=== PATIENT | female | born 1990 | race Two or more races ===

== ENCOUNTER 2023-10-10 19:50 | Inpatient (IN) ==
[2023-10-10] MEDS: SODIUM CHLORIDE 0.9% 1,000 ML IV ONE ×2 (22:01→22:56)
[2023-10-10] MEDS: levoFLOXacin/D5W 750 MG/150 ML BAG IV STA (22:01)
[2023-10-10 22:19] LABS: Basophils # (auto) 0.02 K/uL (0.00-0.20); Basophils % (auto) 0.3 %; Eosinophils # (auto) 0.08 K/uL (0.00-0.50); Eosinophils % (auto) 1.1 %; Hemoglobin 12.4 g/dl (12.0-16.0); Immature Granulocytes # (auto) 0.02 K/uL (0.01-0.20); Immature Granulocytes % (auto) 0.3 %; Lymphocytes # (auto) 0.58 K/uL (1.20-3.40); Lymphocytes % (auto) 7.8 %; Mean Corpuscular Hemoglobin 28.3 pg (25.0-34.0); Mean Corpuscular Hgb Conc 33.5 g/dL (32.0-36.0); Mean Corpuscular Volume 84.5 fL (80.0-100.0); Mean Platelet Volume 10.7 fL (9.4-12.4); Monocytes # (auto) 1.07 K/uL (0.11-0.59); Monocytes % (auto) 14.4 %; Neutrophils # (auto) 5.66 K/uL (1.40-6.50); Neutrophils % (auto) 76.1 %; Platelet Count 199 K/uL (130-400); RDW Coefficient of Variation 12.4 % (11.5-14.5); RDW Standard Deviation 37.8 fL (36.4-46.3); Red Blood Count 4.38 M/uL (4.20-5.40); White Blood Count 7.43 K/ul (4.8-10.8)
[2023-10-10 22:20] LABS: Pregnancy Test, Serum Negative (Negative)
[2023-10-10 22:24] LABS: Albumin Level 4.4 gm/dl (3.4-5.0); Bilirubin,Total 0.3 mg/dl (0.2-1.0); Calcium 9.6 mg/dl (8.6-10.3); Potassium 3.7 mmol/L (3.5-5.1)
[2023-10-10 22:30] LABS: Albumin Globulin Ratio 1.2 (0.9-2); BUN Creatinine Ratio 22.6 (10-20); Creatinine Clr Calc Pharmacy 96.9 ml/min; Est GFR (African American) 138.3 ml/min; Est GFR (Non-African American) 119.3 ml/min; Globulin 3.8 gm/dl (2.5-4.0); Total Protein 8.2 gm/dl (6.0-8.3)
[2023-10-10] MEDS: OPTIRAY 320 500ml IV ONE (23:25)
--- NOTE | 2023-10-11 01:07 | CT Scan Report ---
Exam(s): CT ABDOMEN + PELVIS With Contrast IV Amt: 85 cc opti 320 EXAM: CT Abdomen and Pelvis With Intravenous Contrast CLINICAL HISTORY: Reason for exam: ? pyleo/abscess. TECHNIQUE: Axial computed tomography images of the abdomen and pelvis with intravenous contrast. CTDI is . mGy and DLP is mGy-cm. Automated exposure control was utilized for the study. A dose lowering technique was utilized adhering to the principles of ALARA. CONTRAST: Patient received 85 cc opti 320 of IV contrast COMPARISON: No relevant prior studies available. FINDINGS: Lung bases: Unremarkable. No mass. No consolidation. ABDOMEN: Liver: Unremarkable. No mass. Gallbladder and bile ducts: Unremarkable. No calcified stones. No ductal dilation. Pancreas: Unremarkable. No mass. No ductal dilation. Spleen: Unremarkable. No splenomegaly. Adrenals: Unremarkable. No mass. Kidneys and ureters: Unremarkable. No solid mass. No hydronephrosis. Stomach and bowel: Unremarkable. No obstruction. No mucosal thickening. PELVIS: Appendix: No findings to suggest acute appendicitis. Bladder: Unremarkable. No mass. Reproductive: abnormal enhancement with fullness of the cervix. Right ovary demonstrates a 1.1 x 1.3 cm rim-enhancing collection likely representing an involuting follicle. ABDOMEN and PELVIS: Intraperitoneal space: Unremarkable. No free air. No significant fluid collection. Bones/joints: No acute fracture. No dislocation. Soft tissues: Unremarkable. Vasculature: Unremarkable. No abdominal aortic aneurysm. Lymph nodes: Unremarkable. No enlarged lymph nodes. IMPRESSION: Findings suggestive of cervicitis. Electronically signed by: Abhi Jensen MD 10/11/23 01:06 AM
--- NOTE | 2023-10-11 01:39 | Emergency Department Note ---
History of Present Illness General Chief complaint: Fever Stated complaint: FEVER, DOC REF History of Present Illness Maximum Pain Intensity: 7 This 33-year-old female presents the ER for fever, chills, urinary symptoms and back pain she was seen the other day and started on Keflex for UTI. Patient states her symptoms of gotten much worse. Pharmacy had called and she has ESBL in her urine is recommended Levaquin for treatment. Patient states she is healthy with no active medical problems. Home Medications Medication Instructions Recorded Confirmed Type cephalexin 500 mg capsule 500 mg PO TID 7 days #21 caps 10/08/23 10/11/23 Rx Allergies Allergy/AdvReac Type Severity Reaction Status Date / Time No Known Allergies Allergy Unverified 10/11/23 01:45 Past Med/Surg History Medical History No significant medical problems Social History Smoking Status: Never smoker Preferred Language: Estonian Feels Safe at Home: Yes Review of Systems A total of 10 systems reviewed and were otherwise negative Physical Exam Vital Signs Vital Signs - 24 hr 10/10/23 20:30 10/10/23 22:29 10/10/23 23:02 Temperature 37.1 C Temperature Source Temporal Artery Scan Pulse Rate 104 H 112 H Pulse Rate [Apical] 79 Pulse Rhythm [Apical] Regular Pulse Strength [Apical] Normal Respiratory Rate 18 20 Respiratory Effort / Characteristics Non-Labored Respiratory Depth Normal Normal Respiratory Pattern Regular Blood Pressure 119/70 Blood Pressure [Left Arm] 110/64 Blood Pressure Mean 86 Blood Pressure Mean [Left Arm] 79 Pulse Oximetry 100 100 Oxygen Delivery Method Room Air Room Air Sepsis Recent Fever Within 48 Hours Yes Sepsis New/Unexplained Change in Mental Status N/A Sepsis Action Taken by Nursing No Action Required 10/11/23 00:31 10/11/23 01:46 Temperature 37.6 C H 37.7 C H Temperature Source Oral Oral Pulse Rate Pulse Rate [Apical] 114 H Pulse Rhythm [Apical] Pulse Strength [Apical] Respiratory Rate 20 Respiratory Effort / Characteristics Non-Labored Respiratory Depth Normal Respiratory Pattern Regular Blood Pressure Blood Pressure [Left Arm] 112/55 L Blood Pressure Mean Blood Pressure Mean [Left Arm] 74 Pulse Oximetry 98 Oxygen Delivery Method Sepsis Recent Fever Within 48 Hours Sepsis New/Unexplained Change in Mental Status Sepsis Action Taken by Nursing VITALS: Vitals are noted on the nurse's note and reviewed by myself. Vital signs stable. GENERAL: Pleasant female, in no acute distress, nondiaphoretic, well-developed well-nourished. SKIN: Capillary reflex less than 2 seconds. HEENT: Normocephalic. PERRLA. EOMI. Nares patent. Mucous membranes moist. Neck is supple without nuchal rigidity. HEART: Regular rate and rhythm LUNGS: Clear to auscultation bilaterally without wheezes, rales or rhonchi. No retractions or accessory muscle use. ABDOMEN: Positive bowel sounds x 4. Normal tympanic percussion. Soft, nontender, without masses or organomegaly. Byrd sign negative. No guarding or rebound tenderness. Right CVA tenderness MUSCULOSKELETAL: No gross musculoskeletal defects. NEURO: Patient was alert and oriented to person place and time. No focal neurological deficits. Course Administered Medications Discontinued Medications Levofloxacin/Dextrose (Levaquin/D5w) 750 mg in 150 mls @ 100 mls/hr IV NOW STA Stop: 10/10/23 22:58 Last Infusion: 10/11/23 00:06 Dose: Infused Documented By: Admin: 10/10/23 22:01 Dose: 100 mls/hr Documented By: IDD Sodium Chloride (Nss) 1,000 mls @ 999 mls/hr IV .Q1H1M ONE Stop: 10/10/23 22:29 Last Infusion: 10/10/23 22:57 Dose: Infused Documented By: Admin: 10/10/23 22:01 Dose: 999 mls/hr Documented By: IDD Sodium Chloride (Nss) 1,000 mls @ 999 mls/hr IV .Q1H1M ONE Stop: 10/10/23 23:46 Last Infusion: 10/11/23 00:06 Dose: Infused Documented By: Admin: 10/10/23 22:56 Dose: 999 mls/hr Documented By: OSORIO Ioversol (Optiray 320 500ml) 85 ml IV ONCE ONE Stop: 10/10/23 23:26 Last Admin: 10/10/23 23:25 Dose: 85 ml Documented By: ELENA Medical Decision Making Medical Records Attestation: I reviewed the patient's medical records. Home Medications Current Medication List: was personally reviewed by me Laboratory Data Attestation: I reviewed the patient's lab results. 10/10/23 21:56 10/10/23 21:56 Lab Results 10/10/23 10/10/23 Range/Units 21:56 23:49 WBC 7.43 (4.8-10.8) K/ul RBC 4.38 (4.20-5.40) M/uL Hgb 12.4 (12.0-16.0) g/dl Hct 37.0 (37.0-47.0) % MCV 84.5 (80.0-100.0) fL MCH 28.3 (25.0-34.0) pg MCHC 33.5 (32.0-36.0) g/dL RDW Std Deviation 37.8 (36.4-46.3) fL RDW Coeff of Benitez 12.4 (11.5-14.5) % Plt Count 199 (130-400) K/uL MPV 10.7 (9.4-12.4) fL Immature Gran % (Auto) 0.3 % Neut % (Auto) 76.1 % Lymph % (Auto) 7.8 % [place] % (Auto) 14.4 % Eos % (Auto) 1.1 % Baso % (Auto) 0.3 % Neut # (Auto) 5.66 (1.40-6.50) K/uL Lymph # (Auto) 0.58 L (1.20-3.40) K/uL [place] # (Auto) 1.07 H (0.11-0.59) K/uL Eos # (Auto) 0.08 (0.00-0.50) K/uL Baso # (Auto) 0.02 (0.00-0.20) K/uL Immature Gran # (Auto) 0.02 (0.01-0.20) K/uL Sodium 135 L (136-145) mmol/L Potassium 3.7 (3.5-5.1) mmol/L Chloride 104 (98-107) mmol/L Carbon Dioxide 23 (21-32) mmol/L Anion Gap 8 (3-11) BUN 14 (6-23) mg/dl Creatinine 0.62 (0.6-1.2) mg/dl Est Cr Clr Drug Dosing 96.9 ml/min Est GFR ( Amer) 138.3 ml/min Est GFR (Non-Af Amer) 119.3 ml/min BUN/Creatinine Ratio 22.6 H (10-20) Glucose 87 (70-99(Fasting)) mg/dl Lactate 2.5 H* 1.4 (0.4-2.0) mmol/L Calcium 9.6 (8.6-10.3) mg/dl Magnesium 2.0 (1.7-2.4) mg/dl Total Bilirubin 0.3 (0.2-1.0) mg/dl AST 20 (13-39) U/L ALT 20 (7-52) U/L Alkaline Phosphatase 41 (34-104) U/L Total Protein 8.2 (6.0-8.3) gm/dl Albumin 4.4 (3.4-5.0) gm/dl Globulin 3.8 (2.5-4.0) gm/dl Albumin/Globulin Ratio 1.2 (0.9-2) HCG, Qual Negative (Negative) Imaging Data Attestation: I personally reviewed and interpreted this imaging study as follows: Radiologist's Impression: Abdomen/Pelvis CT 10/10/23 21:29 Exam(s): CT ABDOMEN + PELVIS With Contrast IV Amt: 85 cc opti 320 EXAM: CT Abdomen and Pelvis With Intravenous Contrast CLINICAL HISTORY: Reason for exam: ? pyleo/abscess. TECHNIQUE: Axial computed tomography images of the abdomen and pelvis with intravenous contrast. CTDI is . mGy and DLP is mGy-cm. Automated exposure control was utilized for the study. A dose lowering technique was utilized adhering to the principles of ALARA. CONTRAST: Patient received 85 cc opti 320 of IV contrast COMPARISON: No relevant prior studies available. FINDINGS: Lung bases: Unremarkable. No mass. No consolidation. ABDOMEN: Liver: Unremarkable. No mass. Gallbladder and bile ducts: Unremarkable. No calcified stones. No ductal dilation. Pancreas: Unremarkable. No mass. No ductal dilation. Spleen: Unremarkable. No splenomegaly. Adrenals: Unremarkable. No mass. Kidneys and ureters: Unremarkable. No solid mass. No hydronephrosis. Stomach and bowel: Unremarkable. No obstruction. No mucosal thickening. PELVIS: Appendix: No findings to suggest acute appendicitis. Bladder: Unremarkable. No mass. Reproductive: abnormal enhancement with fullness of the cervix. Right ovary demonstrates a 1.1 x 1.3 cm rim-enhancing collection likely representing an involuting follicle. ABDOMEN and PELVIS: Intraperitoneal space: Unremarkable. No free air. No significant fluid collection. Bones/joints: No acute fracture. No dislocation. Soft tissues: Unremarkable. Vasculature: Unremarkable. No abdominal aortic aneurysm. Lymph nodes: Unremarkable. No enlarged lymph nodes. IMPRESSION: Findings suggestive of cervicitis. Electronically signed by: Abhi Jensen MD 10/11/23 01:06 AM [facility] Narrative Prior records/ancillary studies reviewed. Triage Nursing notes reviewed. Additional history obtained from the family. The patient's history was concerning for UTI with fever with positive urine culture for ESBL Differential diagnosis: Etiologies such as sepsis, pyelonephritis, abscess, viral syndrome, otitis, pharyngitis, pneumonia, influenza, meningitis, urinary tract infection, sepsis, bacteremia, as well as others were entertained. Physical examination: As above ER treatment provided: An order was placed for continuous cardiac monitoring. The monitor shows a rate of 60-1 20 with a sinus rhythm per my interpretation. Levaquin IV fluids and Tylenol ordered On reassessment the patient felt better. Diagnostics interpreted by me: ECG: Ordered for tachycardia EKG: Normal sinus, normal intervals, no acute ST-T wave changes. Impression normal sinus rhythm independent interpreted by myself The labs Independently Interpreted by myself revealed prior urine cultures concerning for ESBL. It is sensitive to Levaquin. Pharmacy is recommending Levaquin Elevated lactic and repeat is better Blood cultures pending [address], [place] [address] / Director: Albert Cohn M.D. Clinical Laboratory Report Name: DELFIN LEE Acct: [id number] Status: [facility] : 1990 [facility] [place] Date: 10/08/23 Age: 33 Sex: F Dis Date: Loc: Emergency Department Spec: [id number] Collected: 10/08/23 Received: 10/08/[address]: Chava Thomas M.D. Source: Urine,Clean Catch OV Order: Ordered: Urine Culture Procedure Result Verified Site Urine Culture Final 10/10/23 Organism 1 Escherichia coli ESBL [place] Count >100,000 CFU/ml Sens Sensitivities to Follow ESBL E col RX M.I.C. --- --------- Amox/Clav S <=8/4 Ampicillin R >16 Amp/Sul S <=8/4 Cefazolin R >16 Cefepime R 16 Cefotaxime R >16 Ceftriaxone R >2 Ciprofloxacin I 0.5 Ertapenem S <=0.5 Gentamicin S <=4 Levofloxacin S <=0.5 Meropenem S <=1 Nitrofurantoin S <=32 Tobramycin S <=4 Trimeth/Sulfa R >2/38 Pip/Tazo S <=16 S = SENSITIVE I = INTERMEDIATE R = RESISTANT Imaging studies: Chest x-ray with no acute consolidation, pneumothorax or free air per my independent or potation CT as above Consultation: A consultation was placed with hospitalist. The case was discussed and diagnostics were reviewed. The patient was evaluated in the ER for further treatment. This appears to be consistent with sepsis from ESBL UTI. Patient was started on antibiotics when I saw the patient in triage. Septic workup was initiated. She was sent in for imaging. Medicine was consulted and case discussed. She will admitted to the medical service for further evaluation and workup.. By the evaluation outlined above emergent etiologies such as otitis, pharyngitis, pneumonia, meningitis, bacteremia, as well as others were deemed relatively unlikely. The pt informed about the findings as listed above. All questions were answered and pleased with the treatment. The chart was completed utilizing [employer] Speech voice recognition software. Grammatical errors, random word insertions, pronoun errors, and incomplete sentences are an occassional consequence of this system due to software limitations, ambient noise, and hardware issues. Any formal questions or concerns about the content, text, or information contained within the body of this dictation should be directly addressed to the physician clinic assistant for clarification. Impression & Plan Urinary tract infection due to extended-spectrum beta lactamase (ESBL) producing Escherichia coli, Sepsis Discharge Plan Visit Data Chief Complaint: Fever Stated Complaint: FEVER, DOC REF ED Provider: Travis Delaney ED Midlevel Provider: [place] Discharge Problem: Urinary tract infection due to extended-spectrum beta lactamase (ESBL) producing Escherichia coli, Sepsis Patient Disposition: Admitted As Inpatient Condition: Fair Forms Stand Alone Forms: [facility] Prescriptions Prescriptions: No Action cephalexin 500 mg capsule 500 mg PO TID 7 Days Qty: 21 0RF Referrals Referrals: PCP,NO [Primary Care Provider] -
[2023-10-11] MEDS: ACETAMINOPHEN 500 MG TAB PO STA (02:21)
--- NOTE | 2023-10-11 02:48 | History & Physical Report ---
Date of Service October 11, 2023 Assessment & Plan (1) Sepsis: (2) Urinary tract infection due to extended-spectrum beta lactamase (ESBL) producing Escherichia coli: (3) Cervicitis: Plan Sepsis due to ESBL E. coli UTI/possible cervicitis- From the ED received the following: Levofloxacin 750 mg IV, normal saline 2 L bolus. Continue levofloxacin 750 mg IV daily NSS + KCl 20 mill equivalents at 100 mL/h x 1 L Of note, due to patient's severity of symptoms she will be admitted. Oral antibiotics that the bacteria is sensitive to include the following: Augmentin, levofloxacin. CT scan of abdomen pelvis suggested the possibility of cervicitis, however, patient has no risk factors. If symptoms are persistent, options are to consult [employer] for their opinion History of Present Illness Chief Complaint: The patient presents to the emergency department with fevers, chills, urinary frequency and dysuria, and low back pain that have been worsening since she was seen in the emergency department on 10/08/2023 and started on Keflex for a UTI Primary Care Provider: NO PCP The patient is a 33-year-old female with no significant past medical history, who presents to the emergency department as noted above. Her urine cultures at this time are growing a modified ESBL with E. coli, and due to temperature and generalized malaise, she is referred to the hospitalist service for admission Allergies Allergy/AdvReac Type Severity Reaction Status Date / Time No Known Allergies Allergy Unverified 10/11/23 01:45 Home Medications Medication Instructions Recorded Confirmed Type cephalexin 500 mg capsule 500 mg PO TID 7 days #21 caps 10/08/23 10/11/23 Rx Past Med/Surg History Medical History No significant medical problems Social History Smoking Status: Never smoker Preferred Language: Khmer Feels Safe at Home: Yes Review of Systems Review of Systems: The patient denies chest pain, palpitations, shortness of breath, dyspnea on exertion, cough, lower extremity swelling, sore throat, fevers, chills, sweats, nausea, vomiting, diarrhea , constipation, blood in urine or stool, lightheadedness, dizziness, headache, memory loss, loss of consciousness, rash, abnormal bruising or bleeding, imbalance, focal weakness, numbness or tingling in arms or legs, neck pain, or night sweats. The review of systems is otherwise negative other than for that already noted above, and at least 10 systems have been reviewed. Physical Exam Physical Exam: The patient is awake, alert and oriented 3, well developed and well nourished, normocephalic and atraumatic, lying in bed and in no acute distress. HEENT--PERRL, EOMI, mucous membranes and oropharynx mildly dry. Neck--supple. No JVD. No bruits. Thyroid normal, trachea midline, no adenopathy. Heart--normal S1 and S2. No murmurs, rubs or gallops. Lungs--clear bilaterally, no respiratory distress, no accessory muscle use. Abdomen--normal bowel sounds and soft. Mild suprapubic pain. Nondistended Extremities--No edema. Dermatologic--normal skin turgor, normal color, no abnormal lymph nodes, no rash. Neurologic--cranial nerves II through XII grossly intact. Rheumatologic--normal range of motion. Psychiatric--normal affect. Results & Data Results & Data Vital Signs (Past 12 Hours) Vital Signs Temp Pulse Pulse Resp BP BP Pulse Ox 10/11/23 02:34 108 H 10/11/23 01:46 37.7 C H 10/11/23 00:31 37.6 C H 114 H 20 112/55 L 98 10/10/23 23:02 79 20 110/64 100 10/10/23 22:29 112 H 10/10/23 20:30 37.1 C 104 H 18 119/70 100 O2 Del Method 10/11/23 02:34 10/11/23 01:46 10/11/23 00:31 10/10/23 23:02 Room Air 10/10/23 22:29 10/10/23 20:30 Room Air Laboratory Results Laboratory Results WBC 7.43 K/ul (4.8-10.8) 10/10/23 21:56 RBC 4.38 M/uL (4.20-5.40) 10/10/23 21:56 Hgb 12.4 g/dl (12.0-16.0) 10/10/23 21:56 Hct 37.0 % (37.0-47.0) 10/10/23 21:56 MCV 84.5 fL (80.0-100.0) 10/10/23 21:56 MCH 28.3 pg (25.0-34.0) 10/10/23 21:56 MCHC 33.5 g/dL (32.0-36.0) 10/10/23 21:56 RDW Std Deviation 37.8 fL (36.4-46.3) 10/10/23 21:56 RDW Coeff of Benitez 12.4 % (11.5-14.5) 10/10/23 21:56 Plt Count 199 K/uL (130-400) 10/10/23 21:56 MPV 10.7 fL (9.4-12.4) 10/10/23 21:56 Immature Gran % (Auto) 0.3 % 10/10/23 21:56 Neut % (Auto) 76.1 % 10/10/23 21:56 Lymph % (Auto) 7.8 % 10/10/23 21:56 [place] % (Auto) 14.4 % 10/10/23 21:56 Eos % (Auto) 1.1 % 10/10/23 21:56 Baso % (Auto) 0.3 % 10/10/23 21:56 Neut # (Auto) 5.66 K/uL (1.40-6.50) 10/10/23 21:56 Lymph # (Auto) 0.58 K/uL (1.20-3.40) L 10/10/23 21:56 [place] # (Auto) 1.07 K/uL (0.11-0.59) H 10/10/23 21:56 Eos # (Auto) 0.08 K/uL (0.00-0.50) 10/10/23 21:56 Baso # (Auto) 0.02 K/uL (0.00-0.20) 10/10/23 21:56 Immature Gran # (Auto) 0.02 K/uL (0.01-0.20) 10/10/23 21:56 Sodium 135 mmol/L (136-145) L 10/10/23 21:56 Potassium 3.7 mmol/L (3.5-5.1) 10/10/23 21:56 Chloride 104 mmol/L (98-107) 10/10/23 21:56 Carbon Dioxide 23 mmol/L (21-32) 10/10/23 21:56 Anion Gap 8 (3-11) 10/10/23 21:56 BUN 14 mg/dl (6-23) 10/10/23 21:56 Creatinine 0.62 mg/dl (0.6-1.2) 10/10/23 21:56 Est Cr Clr Drug Dosing 96.9 ml/min 10/10/23 21:56 Est GFR ( Amer) 138.3 ml/min 10/10/23 21:56 Est GFR (Non-Af Amer) 119.3 ml/min 10/10/23 21:56 BUN/Creatinine Ratio 22.6 (10-20) H 10/10/23 21:56 Glucose 87 mg/dl (70-99(Fasting)) 10/10/23 21:56 Lactate 1.4 mmol/L (0.4-2.0) 10/10/23 23:49 Calcium 9.6 mg/dl (8.6-10.3) 10/10/23 21:56 Magnesium 2.0 mg/dl (1.7-2.4) 10/10/23 21:56 Total Bilirubin 0.3 mg/dl (0.2-1.0) 10/10/23 21:56 AST 20 U/L (13-39) 10/10/23 21:56 ALT 20 U/L (7-52) 10/10/23 21:56 Alkaline Phosphatase 41 U/L (34-104) 10/10/23 21:56 Total Protein 8.2 gm/dl (6.0-8.3) 10/10/23 21:56 Albumin 4.4 gm/dl (3.4-5.0) 10/10/23 21:56 Globulin 3.8 gm/dl (2.5-4.0) 10/10/23 21:56 Albumin/Globulin Ratio 1.2 (0.9-2) 10/10/23 21:56 HCG, Qual Negative (Negative) 10/10/23 21:56 Impressions Abdomen/Pelvis CT 10/10/23 21:29 Exam(s): CT ABDOMEN + PELVIS With Contrast IV Amt: 85 cc opti 320 EXAM: CT Abdomen and Pelvis With Intravenous Contrast CLINICAL HISTORY: Reason for exam: ? pyleo/abscess. TECHNIQUE: Axial computed tomography images of the abdomen and pelvis with intravenous contrast. CTDI is . mGy and DLP is mGy-cm. Automated exposure control was utilized for the study. A dose lowering technique was utilized adhering to the principles of ALARA. CONTRAST: Patient received 85 cc opti 320 of IV contrast COMPARISON: No relevant prior studies available. FINDINGS: Lung bases: Unremarkable. No mass. No consolidation. ABDOMEN: Liver: Unremarkable. No mass. Gallbladder and bile ducts: Unremarkable. No calcified stones. No ductal dilation. Pancreas: Unremarkable. No mass. No ductal dilation. Spleen: Unremarkable. No splenomegaly. Adrenals: Unremarkable. No mass. Kidneys and ureters: Unremarkable. No solid mass. No hydronephrosis. Stomach and bowel: Unremarkable. No obstruction. No mucosal thickening. PELVIS: Appendix: No findings to suggest acute appendicitis. Bladder: Unremarkable. No mass. Reproductive: abnormal enhancement with fullness of the cervix. Right ovary demonstrates a 1.1 x 1.3 cm rim-enhancing collection likely representing an involuting follicle. ABDOMEN and PELVIS: Intraperitoneal space: Unremarkable. No free air. No significant fluid collection. Bones/joints: No acute fracture. No dislocation. Soft tissues: Unremarkable. Vasculature: Unremarkable. No abdominal aortic aneurysm. Lymph nodes: Unremarkable. No enlarged lymph nodes. IMPRESSION: Findings suggestive of cervicitis. Electronically signed by: Abhi Jensen MD 10/11/23 01:06 AM Code Status & VTE Plan Code Status Full code VTE Prophylaxis Plan VTE Prophylaxis will be ordered: Yes PG Care Time/CCT Total # of Minutes Spent Total Time Spent with Patient: Total time spent is greater than 50% in coordination of care (as documented) at patient's floor/unit and/or counseling patient: Coding Level of Care Code 75053 INT INP/OBS CARE 2/55MIN Diagnoses Sepsis A41.9 Urinary tract infection due to extended-spectrum beta lactamase (ESBL) producing Escherichia coli N39.0; B96.29; Z16.12 Cervicitis N72
[2023-10-11] MEDS ORDERED: ACETAMINOPHEN 325 MG TAB PO PRN (03:20)
[2023-10-11] MEDS: NSS + 20MEQ KCL 20 MEQ/1,000 ML BAG IV SCH (03:40)
[2023-10-11] MEDS: SODIUM CHLORIDE 0.9% 1,000 ML IV SCH (04:02)
[2023-10-11 04:41] LABS: Basophils # (auto) 0.02 K/uL (0.00-0.20); Basophils % (auto) 0.3 %; Eosinophils # (auto) 0.02 K/uL (0.00-0.50); Eosinophils % (auto) 0.3 %; Hematocrit (blood only) 33.3 % (37.0-47.0); Hemoglobin 10.8 g/dl (12.0-16.0); Immature Granulocytes # (auto) 0.03 K/uL (0.01-0.20); Immature Granulocytes % (auto) 0.5 %; Lymphocytes # (auto) 0.48 K/uL (1.20-3.40); Lymphocytes % (auto) 8.3 %; Mean Corpuscular Hemoglobin 27.8 pg (25.0-34.0); Mean Corpuscular Hgb Conc 32.4 g/dL (32.0-36.0); Mean Corpuscular Volume 85.8 fL (80.0-100.0); Mean Platelet Volume 11.1 fL (9.4-12.4); Monocytes # (auto) 1.04 K/uL (0.11-0.59); Neutrophils % (auto) 72.6 %; Platelet Count 178 K/uL (130-400); RDW Coefficient of Variation 12.3 % (11.5-14.5); RDW Standard Deviation 38.6 fL (36.4-46.3); Red Blood Count 3.88 M/uL (4.20-5.40); White Blood Count 5.79 K/ul (4.8-10.8)
[2023-10-11 04:44] LABS: Albumin Level 3.6 gm/dl (3.4-5.0); BUN Creatinine Ratio 17.2 (10-20); Calcium 8.2 mg/dl (8.6-10.3); Creatinine Clr Calc Pharmacy 93.9 ml/min; Est GFR (African American) 136.8 ml/min; Est GFR (Non-African American) 118.1 ml/min; Potassium 3.5 mmol/L (3.5-5.1)
[2023-10-11] MEDS ORDERED: ONDANSETRON INJ 2 MG/ML 2 ML VIAL IV PRN (07:00)
--- NOTE | 2023-10-11 07:43 | XRay Report ---
XR chest 1V not portable HISTORY: Sepsis COMPARISON: None. FINDINGS: The lungs are clear. Cardiac silhouette is normal in size. No pleural effusions. No pneumot horax. IMPRESSION: No acute process. ACT 112: Negative or not required by law. Electronically signed by: Parish Menchaca M.D. 10/11/2023 7:42 AM
--- NOTE | 2023-10-11 11:08 | Electrocardiogram Report ---
Test Reason : Blood Pressure : / mmHG Vent. Rate : 111 BPM Atrial Rate : 111 BPM P-R Int : 150 ms QRS Dur : 074 ms QT Int : 302 ms P-R-T Axes : 067 038 049 degrees QTc Int : 410 ms Sinus tachycardia Otherwise normal ECG No previous ECGs available Confirmed by Chivo Siddiqui ([id number]) on 10/11/2023 11:07:49 AM Referred By: REFERRED SELF Confirmed By:Tate Siddiqui
[2023-10-11] MEDS: LACTATED RINGER'S 500 ML IV ONE (16:50)
[2023-10-11] MEDS: levoFLOXacin/D5W 750 MG/150 ML BAG IV SCH (20:15)
[2023-10-12 06:15] LABS: Basophils # (auto) 0.02 K/uL (0.00-0.20); Basophils % (auto) 0.4 %; Eosinophils # (auto) 0.01 K/uL (0.00-0.50); Eosinophils % (auto) 0.2 %; Hematocrit (blood only) 34.1 % (37.0-47.0); Immature Granulocytes # (auto) 0.01 K/uL (0.01-0.20); Immature Granulocytes % (auto) 0.2 %; Lymphocytes # (auto) 2.54 K/uL (1.20-3.40); Lymphocytes % (auto) 45.4 %; Mean Corpuscular Hemoglobin 27.8 pg (25.0-34.0); Mean Corpuscular Hgb Conc 32.3 g/dL (32.0-36.0); Mean Corpuscular Volume 86.3 fL (80.0-100.0); Mean Platelet Volume 11.1 fL (9.4-12.4); Monocytes # (auto) 1.09 K/uL (0.11-0.59); Monocytes % (auto) 19.5 %; Neutrophils # (auto) 1.92 K/uL (1.40-6.50); Neutrophils % (auto) 34.3 %; Platelet Count 170 K/uL (130-400); RDW Coefficient of Variation 12.7 % (11.5-14.5); Red Blood Count 3.95 M/uL (4.20-5.40); White Blood Count 5.59 K/ul (4.8-10.8)
[2023-10-12 06:21] LABS: Albumin Level 3.7 gm/dl (3.4-5.0); BUN Creatinine Ratio 13.7 (10-20); Bilirubin Direct 0.1 mg/dl (0-0.2); Bilirubin,Total 0.3 mg/dl (0.2-1.0); Calcium 8.4 mg/dl (8.6-10.3); Creatinine Clr Calc Pharmacy 83.8 ml/min; Est GFR (African American) 126.3 ml/min; Phosphorus 3.5 mg/dl (2.5-4.9); Potassium 3.9 mmol/L (3.5-5.1); Total Protein 6.6 gm/dl (6.0-8.3)
--- NOTE | 2023-10-12 09:19 | Discharge Summary ---
Date of Service October 12, 2023 Admission HPI Per Admitting Provider The patient is a 33-year-old female with no significant past medical history, who presents to the emergency department as noted above. Her urine cultures at this time are growing a modified ESBL with E. coli, and due to temperature and generalized malaise, she is referred to the hospitalist service for admission Admission Exam Per Admitting Provider The patient is awake, alert and oriented 3, well developed and well nourished, normocephalic and atraumatic, lying in bed and in no acute distress. HEENT--PERRL, EOMI, mucous membranes and oropharynx mildly dry. Neck--supple. No JVD. No bruits. Thyroid normal, trachea midline, no adenopathy. Heart--normal S1 and S2. No murmurs, rubs or gallops. Lungs--clear bilaterally, no respiratory distress, no accessory muscle use. Abdomen--normal bowel sounds and soft. Mild suprapubic pain. Nondistended Extremities--No edema. Dermatologic--normal skin turgor, normal color, no abnormal lymph nodes, no rash. Neurologic--cranial nerves II through XII grossly intact. Rheumatologic--normal range of motion. Psychiatric--normal affect. Principal Diagnosis ESBL UTI Discharge Exam Gen: well appearing female patient in NAD HEENT: AT NC MMM Resp: no increased work of breathing CV: clinically well perfused Abd: soft, non-tender, non-distended, no suprapubic tenderness, no flank pain MSK: no obvious deformities Skin: no rashes or bruising Neuro: alert and oriented Psych: appropriate mood and affect Discharge Data Allergies Allergy/AdvReac Type Severity Reaction Status Date / Time No Known Allergies Allergy Unverified 10/11/23 01:45 Consultations 10/11/23 02:59 ED Decision to Admit Stat Ordered Studies Chest X-Ray 10/10/23 20:35 XR chest 1V not portable HISTORY: Sepsis COMPARISON: None. FINDINGS: The lungs are clear. Cardiac silhouette is normal in size. No pleural effusions. No pneumothorax. IMPRESSION: No acute process. Abdomen/Pelvis CT 10/10/23 21:29 FINDINGS: Lung bases: Unremarkable. No mass. No consolidation. ABDOMEN: Liver: Unremarkable. No mass. Gallbladder and bile ducts: Unremarkable. No calcified stones. No ductal dilation. Pancreas: Unremarkable. No mass. No ductal dilation. Spleen: Unremarkable. No splenomegaly. Adrenals: Unremarkable. No mass. Kidneys and ureters: Unremarkable. No solid mass. No hydronephrosis. Stomach and bowel: Unremarkable. No obstruction. No mucosal thickening. PELVIS: Appendix: No findings to suggest acute appendicitis. Bladder: Unremarkable. No mass. Reproductive: abnormal enhancement with fullness of the cervix. Right ovary demonstrates a 1.1 x 1.3 cm rim-enhancing collection likely representing an involuting follicle. ABDOMEN and PELVIS: Intraperitoneal space: Unremarkable. No free air. No significant fluid johnny ection. Bones/joints: No acute fracture. No dislocation. Soft tissues: Unremarkable. Vasculature: Unremarkable. No abdominal aortic aneurysm. Lymph nodes: Unremarkable. No enlarged lymph nodes. IMPRESSION: Findings suggestive of cervicitis. Hospital Course (1) Urinary tract infection due to extended-spectrum beta lactamase (ESBL) produ cing Escherichia coli: ESBL UTI - Augmentin and levofloxacin susceptible in terms of PO agents. Initially met SIRS criteria with tachycardia, tachypnea, and suspected source of infection. Tachypnea and tachycardia have since resolved. Unclear why patient with ESBL bacteriuria as no clear risk factors. Will continue with Levofloxacin for outpatient treatment. Blood cultures negative x 24H. Stable for discharge home with close follow up. (2) Sepsis: (3) Cervicitis: Incidental finding on CT. Asymptomatic. Would recommend outpatient follow up if patient becomes symptomatic. (4) History of hepatitis: Reportedly patient with history of Hep C treated with steroids in [place]. Steroids would not likely be the treatment modality for Hep C. LFTs normal. Hepatitis panel pending. Follow up outpatient. Total Time Total Time Spent Total Time Spent (In Minutes): 28 Discharge Plan Discharge Items Patient Disposition: Home - Self-Care Reason For Visit: ESBL E. coli UTI, T[place] Discharge Diagnosis: ESBL UTI Condition on Discharge: Fair Activity: Per Instructions section Non-emergency contact: Primary Care Provider Call non-emergency contact if: you have any medication questions and your temperature is above 101 Follow-up/Referrals: Mamie Samson DO [Physician] - (We have requested a follow up appointment with one of the family medicine doctors at [facility]. If you do not hear from them in the next 3 days call [phone] to schedule an appointment with any available provider. ) PCP,NO [Primary Care Provider] - Diet: Regular Addtl Attending Provider Instructions: You were admitted to the hospital for a complicated urinary tract infection. Your urine was growing a resistant bacteria, so you were started on a medication called Levofloxacin which the bacteria was found to be susceptible to. We will continue with this medication for a total of 7 days. You will take 750 mg daily for the next six days. If you develop fevers, worsening pain, or feel like your heart is racing return to care either with your primary care doctor or here in the ED. We have requested a follow up appointment with one of the family medicine doctors at [facility]. If you do not hear from them in the next 3 days call [phone] to schedule an appointment with any available provider. A discharge summary will be sent to your primary care physician to ensure continuity of care. Please bring this discharge summary with you to your next office appointment so that your provider can review it at that time. Follow-up appointments: Make a follow-up appointment with your PCP within the next week. It is very important that you follow up with them shortly after discharge from the hospital. Keep all your follow-up appointments as already scheduled. If you cannot make an appointment, notify your provider. Medications: Your medication list has been reviewed and reconciled upon discharge to ensure accuracy and continuity of care. An updated list of all your medications is included with your hospital discharge paperwork. Please review this list closely, and make note of any changes. Take your medications as instructed; do not skip a dose of your medicines. Make sure all of your doctors know every medicine you are taking (including [id number] medicines, vitamins, and supplements). Call your primary care provider before taking any new medicines (including over- the-counter medicines, vitamins, and supplements), because some of these may interact with your current medications, or may make your symptoms worse. Tell your primary care provider if you cannot afford your medications. CALL 911 OR GO TO THE EMERGENCY DEPARTMENT if you experience any of the following: Sudden, severe abdominal pain or nausea/vomiting Severe chest pain, or chest pain that radiates (moves) to your jaw or arm Sudden, severe shortness of breath or difficulty breathing Thank you for allowing us to participate in your care Pending Studies at Discharge: Yes Studies:: hepatitis panel Stand-Alone Forms: [employer], Smoking Cessation Medications and DC Order Prescriptions: New levofloxacin 750 mg Tablet 750 mg PO DAILY@1100 Qty: 5 0RF Discontinued cephalexin 500 mg capsule 500 mg PO TID 7 Days Qty: 21 0RF Discharge Orders: Discharge Order (Routine); Ordered 10/12/23 Ordered By: Ambreen Hardy Admission Data Admit Date/Time: 10/11/23 02:47 Attending Provider: Mamie Samson Admit Provider: Leroy Pina Primary Care Provider: PCP,NO Other Providers: Leroy Pina Other Interventions: Discharge Summary Assessment (RN) Last Done: 10/12/23 11:39 Supervising Physician Co-Signing Physician Notes I personally examined the patient and verified molina points of history and exam, discussed case, and agree with decision making and plan documented by Dr. Hardy. Patient with much clinical improvement following antibiotics to treat ESBL UTI. Advised patient to complete remaining 5 days of levofloxacin. Discussed at length what ESBL means and ways to prevent household transmission. Following discharge, hepatitis panel resulted with reactive IgM of hepatitis A. Patient will be contacted to be informed of positive hep A status, at time of discharge she was not having any symptoms of headache, anorexia, nausea, vomiting, diarrhea, or abdominal pain. She will be informed about ways to avoid transmission and warning signs (jaundice, malaise, darkened urine) about worsening infection. She will be scheduled for follow-up with new PCP within a week of discharge to address further. Resident Activity Tracking Resident Involvement: Resident Care Provided Care Provided: Adult Hospital Medicine
[2023-10-12] MEDS: levoFLOXacin 750 MG TAB PO SCH (10:50)
[2023-10-12 14:52] LABS: HBSAG NON-REACTIVE (NON-REACTIVE); Hepatitis A Antibody IgM REACTIVE (NON-REACTIVE); Hepatitis B Core Antibody IgM NON-REACTIVE (NON-REACTIVE)
== END 2023-10-12 13:59 | disposition home or self-care (01) | DRG 872 ==
LOC: ED 19:50 → EDINP 10-11 02:47 → SUATTDRO 10-11 02:47 → 2W 10-11 03:19
DX: N39.0 Urinary tract infection, site not specified; Z16.12 Extended spectrum beta lactamase (ESBL) resistance; B15.9 Hepatitis A without hepatic coma; Z86.19 Personal history of other infectious and parasitic diseases; A41.51 Sepsis due to Escherichia coli [E. coli]; N72 Inflammatory disease of cervix uteri

== ENCOUNTER 2024-06-28 07:20 | Inpatient (IN) ==
[2024-06-28] MEDS ORDERED: LIDOCAINE 1% LOCAL 20 ML VIAL INFIL PRN (07:59)
[2024-06-28] MEDS ORDERED: OXYTOCIN 30 UNITS/NSS 30 UNITS/500 ML BAG IV PRN (07:59)
[2024-06-28 08:35] LABS: Hematocrit (blood only) 36.9 % (37.0-47.0); Hemoglobin 12.6 g/dl (12.0-16.0); Mean Corpuscular Hemoglobin 28.2 pg (25.0-34.0); Mean Corpuscular Hgb Conc 34.1 g/dL (32.0-36.0); Mean Corpuscular Volume 82.6 fL (80.0-100.0); Mean Platelet Volume 11.4 fL (9.4-12.4); Platelet Count 179 K/uL (130-400); RDW Coefficient of Variation 15.8 % (11.5-14.5); RDW Standard Deviation 47.3 fL (36.4-46.3); Red Blood Count 4.47 M/uL (4.20-5.40); White Blood Count 11.89 K/ul (4.8-10.8)
[2024-06-28] MEDS: LACTATED RINGER'S 1,000 ML IV SCH (08:56)
--- NOTE | 2024-06-28 09:21 | Anesthesiology Consultation ---
Date of Service June 28, 2024 Assessment & Plan Chart Review Chart Review: Acceptable Risk for Surgery and Patient NOT seen in Pre Admission Testing Consults Requested none ASA ASA2 Proposed Anesthesia Anesthesia Type: Labor Epidural and CSE Risk / Benefits Reviewed With: PT / POA / Parent / Guardian, Accepts Plan and Informed Consent Obtained History Height/Weight Height: 4 ft 7 in Weight: 71.668 kg Allergies Allergy/AdvReac Type Severity Reaction Status Date / Time No Known Allergies Allergy Unverified 06/28/24 07:35 Medications Home Medications Medication Instructions Recorded Confirmed Last Taken docusate sodium 50 mg capsule 50 mg PO DAILY 06/17/24 06/28/24 06/27/24 21:00 prenat.vits,marcie,tio-tges-skyvg 1 tab PO DAILY 06/28/24 06/28/24 06/27/24 21:00 Active Medications Generic Name Dose Route Start Last Admin Trade Name Freq PRN Reason Stop Dose Admin Lactated Ringer's 1,000 mls @ 125 mls/hr 06/28/24 09:00 06/28/24 08:56 Lr IV 06/29/24 08:59 999 mls/hr .Q8H STUART Administration NPO Date Last Intake of Fluids: 06/28/24 Time Last Intake of Fluids: 08:00 Date Last Intake of Solids: 06/28/24 Time Last Intake of Solids: 06:30 Past Medical History Medical History PCOS (polycystic ovarian syndrome) obese gerd anemia Hx/o Hepatitis Exercise / Class Metabolic Activity II 4-5 Yardwork/Stairs/Walk up hill Past Family History Family History Other Acute leukemia Diabetes Hypertension Denies family history of Ovarian cancer Prostate cancer Bipolar disorder Heart disease Breast cancer Colorectal cancer Uterine cancer Past Surgical History Surgical History No pertinent past surgical history Past Anesthesia History No Hx of Anesthesia Complications and No Family Hx of Anesthesia Complications History of PONV No Hx of PONV and No Hx of Motion Sickness Social History Smoking Status: Never smoker Do You Dip or Chew Tobacco: No Hx Alcohol Use: No Hx Substance Use: No substance use type: does not use Physical Exam Vital Signs Last Vital Signs Temp 37.0 C 06/28/24 07:32 Pulse 94 H 06/28/24 07:32 Resp 20 06/28/24 07:32 BP 119/75 06/28/24 07:32 Constitutional + obese ENMT Mouth: no dentition abnormality Thyromental Distance: < 3.5 Finger Breadths Mallampati Class: II Neck normal visual inspection and trachea midline; neck extension not limited Respiratory normal respiratory effort Auscultation: lungs clear to auscultation bilaterally Cardiovascular Rate/Rhythm: regular rate and regular rhythm Heart Sounds: no murmur Vessels: no carotid bruit Musculoskeletal Spine: lumbar spine normal to inspection; normal cervical ROM and no pain with cervical ROM Extremities: full ROM of extremities Neurologic moves all extremities Motor/Sensory: no sensory deficit Psychiatric Orientation: alert and oriented x 3 Testing Laboratory Results 06/28/24 08:17 Electrocardiogram Date: 10/10/23 Findings: + ST @ (@ 111)
[2024-06-28] MEDS: fentaNYL citrate PF 100 MCG/2 ML VIAL ONE (09:42)
[2024-06-28] MEDS: BUPIVACAINE 0.25% PF 30 ML VIAL ONE (09:42)
[2024-06-28] MEDS: ePHEDrine sulfate 50 MG/ML AMP ONE (09:45)
[2024-06-28] MEDS: LIDOCAINE 2%/EPINEPHRINE 1:200,000 20 ML PF ONE (09:47)
[2024-06-28] MEDS ORDERED: PROMETHAZINE 6.25 MG/50.25 ML BAG IV PRN (09:48)
[2024-06-28] MEDS ORDERED: diphenhydrAMINE 50 MG/ML VIAL IV PRN ×2 (09:48→21:31)
[2024-06-28] MEDS ORDERED: ROPIVACAINE 0.5% PF 5 MG/ML 20 ML VIAL EPI PRN (09:48)
[2024-06-28] MEDS ORDERED: fentANYL 2 MCG/ML BUPIVacaine 0.125%-NSS 100ML BAG EPI PRN (09:48)
[2024-06-28] MEDS ORDERED: BUPIVACAINE 0.25% PF 30 ML VIAL EPI PRN (09:48)
[2024-06-28] MEDS ORDERED: NALOXONE HCL 0.4 MG/1 ML VIAL/CARP IV PRN ×2 (09:48→21:31)
[2024-06-28] MEDS ORDERED: LIDOCAINE 2% MPF LOCAL 5 ML VIAL EPI PRN (09:48)
[2024-06-28] MEDS ORDERED: fentaNYL citrate PF 100 MCG/2 ML VIAL EPI PRN (09:48)
[2024-06-28] MEDS ORDERED: SODIUM CHLORIDE 0.9% PF INJ 10 ML VIAL EPI PRN (09:48)
[2024-06-28] MEDS ORDERED: NALBUPHINE HCL INJ 10 MG/ML AMP IV PRN ×2 (09:48→21:31)
[2024-06-28] MEDS ORDERED: NALOXONE HCL 1 MG in SODIUM CHLORIDE 0.9% 1,000 ML IV PRN ×2 (09:48→21:31)
[2024-06-28] MEDS: fentANYL 2 MCG/ML BUPIVacaine 0.125%-NSS 100ML BAG ONE (09:50)
[2024-06-28] MEDS: SODIUM CHLORIDE 0.9% PF INJ 10 ML VIAL ONE (09:55)
[2024-06-28] MEDS: ONDANSETRON INJ 2 MG/ML 2 ML VIAL IV PRN (10:04)
[2024-06-28] MEDS: ePHEDrine sulfate 50 MG/ML AMP IV PRN (10:20)
[2024-06-28] MEDS: OXYTOCIN 30 UNITS/NSS 30 UNITS/500 ML BAG IV PRN (14:43)
[2024-06-28] MEDS ORDERED: Nursing to Pharmacy Communication SCH (17:10)
[2024-06-28] MEDS: BUPIVACAINE 0.25% PF 30 ML VIAL EPI STA (20:15)
[2024-06-28] MEDS: LIDOCAINE 2%/EPINEPHRINE 1:200,000 20 ML PF EPI STA (20:16)
[2024-06-28] MEDS: SODIUM CHLORIDE 0.9% PF INJ 10 ML VIAL EPI STA (20:16)
[2024-06-28] MEDS: fentaNYL citrate PF 100 MCG/2 ML VIAL EPI STA (20:16)
--- NOTE | 2024-06-28 21:11 | Communication Note ---
Date of Service: June 28, 2024 Cse placed this am. pt would have random bouts of low pressure throughout the day. I took over the patient at 3pm. I turned down the epidural throughout the course of the night. pt with excellent pain control. Pt reports headache and nausea whenever she sits up. I originally thought the catheter maybe subdural. No cse aspirated. I now think the catheter is a spinal catheter and will treat it as such. settings changed to 4cc an hour and skelp processor doses stopped. I discussed my plan with the patient and their and they are agreeable. I have decided not to change the catheter at this time because the patient is stable, would have issues getting into position for the epidural, and pain control is good. pt is likely for a csection
[2024-06-28] MEDS ORDERED: ONDANSETRON INJ 2 MG/ML 2 ML VIAL IV PRN (21:31)
[2024-06-28] MEDS ORDERED: MoRPHine SULFATE 2 MG/ML CARP IV PRN (21:31)
[2024-06-28] MEDS ORDERED: HYDROmorphone INJ 0.5 MG/0.5 ML SYR IV PRN (21:31)
[2024-06-28] MEDS ORDERED: ePHEDrine sulfate 50 MG/ML AMP IV PRN (21:31)
[2024-06-28] MEDS ORDERED: NALOXONE HCL 0.08 MG in SYRINGE 1.8 ML IV PRN (21:31)
[2024-06-28] MEDS ORDERED: PHENYLEPHRINE HCL 25 MG/250 ML NSS IV ONE (21:33)
[2024-06-28] MEDS ORDERED: OXYTOCIN 10 UNITS/ML VIAL ONE (21:33)
[2024-06-28] MEDS ORDERED: MoRPHine SULFATE PF 1 MG/ML 10 ML AMP/VIAL ONE (21:33)
--- NOTE | 2024-06-28 21:34 | Obstetrical Progress Note ---
Date of Service June 28, 2024 Assessment & Plan Admission and Anticipated Discharge Date Admission Date: June 28, 2024 Subjective Presented to bedside due to recurrent late decelerations and tachycardia. Discussed with patient and her partner that the baby is not tolerating the labor process well. On evaluation of cervix it was unchanged from prior exam. I recommended that we proceed with a primary section for intolerance of labor and borderline meeting the criteria for failure to progress. Procedure reviewed in detail including risks and benefits. Discussed risks of bleeding, infection, blood clots and injury to internal structures. Consent forms reviewed and signed and all questions answered Results & Data Vital Signs (Past 12 Hours) Vital Signs Temp Pulse Resp BP Pulse Ox 06/28/24 21:30 98 06/28/24 21:30 99 H 06/28/24 21:29 94 06/28/24 21:29 93 H 06/28/24 21:25 99 06/28/24 21:25 82 06/28/24 21:20 99 06/28/24 21:20 83 06/28/24 21:19 83 06/28/24 21:19 113/56 L 06/28/24 21:15 98 06/28/24 21:15 75 06/28/24 21:10 98 06/28/24 21:10 74 06/28/24 21:05 98 06/28/24 21:05 73 06/28/24 21:05 125/63 06/28/24 21:00 18 06/28/24 21:00 37.2 C 18 06/28/24 21:00 98 06/28/24 21:00 78 06/28/24 20:55 99 06/28/24 20:55 77 06/28/24 20:50 98 06/28/24 20:50 80 06/28/24 20:49 81 06/28/24 20:49 121/57 L 06/28/24 20:49 92 06/28/24 20:49 86 06/28/24 20:45 98 06/28/24 20:45 88 06/28/24 20:40 99 06/28/24 20:40 79 06/28/24 20:35 98 06/28/24 20:35 71 06/28/24 20:35 116/57 L 06/28/24 20:30 99 06/28/24 20:30 80 06/28/24 20:25 98 06/28/24 20:25 83 06/28/24 20:20 99 06/28/24 20:20 73 06/28/24 20:20 72 06/28/24 20:20 114/56 L 06/28/24 20:15 100 06/28/24 20:15 78 06/28/24 20:10 99 06/28/24 20:10 74 06/28/24 20:05 99 06/28/24 20:05 81 06/28/24 20:05 80 06/28/24 20:05 105/51 L 06/28/24 20:00 99 06/28/24 20:00 83 06/28/24 19:55 98 06/28/24 19:55 80 06/28/24 19:50 98 06/28/24 19:50 79 06/28/24 19:49 78 06/28/24 19:49 108/58 L 06/28/24 19:47 93 06/28/24 19:47 81 06/28/24 19:45 97 06/28/24 19:45 79 06/28/24 19:40 98 06/28/24 19:40 69 06/28/24 19:35 97 06/28/24 19:35 91 H 06/28/24 19:30 97 06/28/24 19:30 77 06/28/24 19:28 90 06/28/24 19:28 111/70 06/28/24 19:25 98 06/28/24 19:25 95 H 06/28/24 19:24 76 06/28/24 19:24 126/59 L 06/28/24 19:20 99 06/28/24 19:20 84 06/28/24 19:18 81 06/28/24 19:18 147/69 H 06/28/24 19:15 96 06/28/24 19:15 71 06/28/24 19:12 102 H 06/28/24 19:12 105/50 L 06/28/24 19:10 36.8 C 18 06/28/24 19:10 18 06/28/24 19:10 36.8 C 18 06/28/24 19:10 96 06/28/24 19:10 84 06/28/24 19:08 76 06/28/24 19:08 106/54 L 06/28/24 19:05 97 06/28/24 19:05 82 06/28/24 19:02 71 06/28/24 19:02 104/57 L 06/28/24 19:00 20 06/28/24 19:00 20 06/28/24 19:00 97 06/28/24 19:00 72 06/28/24 18:59 69 06/28/24 18:59 102/55 L 06/28/24 18:55 97 06/28/24 18:55 76 06/28/24 18:53 71 06/28/24 18:53 101/55 L 06/28/24 18:50 96 06/28/24 18:50 88 06/28/24 18:48 78 06/28/24 18:48 104/59 L 06/28/24 18:45 97 06/28/24 18:45 81 06/28/24 18:44 69 06/28/24 18:44 100/52 L 06/28/24 18:40 95 06/28/24 18:40 74 06/28/24 18:38 75 06/28/24 18:38 105/55 L 06/28/24 18:35 96 06/28/24 18:35 74 06/28/24 18:32 74 06/28/24 18:32 111/58 L 06/28/24 18:30 20 06/28/24 18:30 20 06/28/24 18:30 97 06/28/24 18:30 86 06/28/24 18:28 84 06/28/24 18:28 107/55 L 06/28/24 18:25 97 06/28/24 18:25 77 06/28/24 18:25 107/54 L 06/28/24 18:23 88 06/28/24 18:23 78/51 L 06/28/24 18:20 96 06/28/24 18:20 78 06/28/24 18:19 85 06/28/24 18:19 84/51 L 06/28/24 18:15 96 06/28/24 18:15 70 06/28/24 18:10 96 06/28/24 18:10 92 H 06/28/24 18:05 96 06/28/24 18:05 92 H 06/28/24 18:04 75 06/28/24 18:04 94/55 L 06/28/24 18:00 36.7 C 06/28/24 18:00 20 06/28/24 18:00 20 06/28/24 18:00 95 06/28/24 18:00 82 06/28/24 18:00 87 06/28/24 18:00 87/53 L 06/28/24 17:55 96 06/28/24 17:55 79 06/28/24 17:50 96 06/28/24 17:50 80 06/28/24 17:49 76 06/28/24 17:49 87/53 L 06/28/24 17:45 96 06/28/24 17:45 82 06/28/24 17:40 95 06/28/24 17:40 78 06/28/24 17:35 96 06/28/24 17:35 75 06/28/24 17:35 74 06/28/24 17:35 99/55 L 06/28/24 17:30 18 06/28/24 17:30 18 06/28/24 17:30 97 06/28/24 17:30 94 H 06/28/24 17:25 98 06/28/24 17:25 88 06/28/24 17:20 97 06/28/24 17:20 83 06/28/24 17:19 87 06/28/24 17:19 110/66 06/28/24 17:15 97 06/28/24 17:15 89 06/28/24 17:10 97 06/28/24 17:10 90 06/28/24 17:05 97 06/28/24 17:05 85 06/28/24 17:04 87 06/28/24 17:04 117/69 06/28/24 17:00 20 06/28/24 17:00 20 06/28/24 17:00 97 06/28/24 17:00 88 06/28/24 16:55 97 06/28/24 16:55 87 06/28/24 16:50 97 06/28/24 16:50 94 H 06/28/24 16:49 88 06/28/24 16:49 119/65 06/28/24 16:45 96 06/28/24 16:45 83 06/28/24 16:40 96 06/28/24 16:40 79 06/28/24 16:35 96 06/28/24 16:35 83 06/28/24 16:34 82 06/28/24 16:34 114/59 L 06/28/24 16:30 20 06/28/24 16:30 20 06/28/24 16:30 96 06/28/24 16:30 84 06/28/24 16:25 96 06/28/24 16:25 77 06/28/24 16:20 96 06/28/24 16:20 84 06/28/24 16:19 80 06/28/24 16:19 115/66 06/28/24 16:15 96 06/28/24 16:15 80 06/28/24 16:10 96 06/28/24 16:10 83 06/28/24 16:05 96 06/28/24 16:05 89 06/28/24 16:04 78 06/28/24 16:04 118/66 06/28/24 16:00 20 06/28/24 16:00 36.7 C 20 06/28/24 16:00 97 06/28/24 16:00 91 H 06/28/24 15:55 20 06/28/24 15:55 36.9 C 20 06/28/24 15:55 97 06/28/24 15:55 97 H 06/28/24 15:55 116/78 06/28/24 15:50 97 06/28/24 15:50 90 06/28/24 15:49 96 H 06/28/24 15:49 88/50 L 06/28/24 15:45 97 06/28/24 15:45 103 H 06/28/24 15:40 98 06/28/24 15:40 92 H 06/28/24 15:35 98 06/28/24 15:35 89 06/28/24 15:35 78 06/28/24 15:35 98/57 L 06/28/24 15:30 20 06/28/24 15:30 20 06/28/24 15:30 99 06/28/24 15:30 90 06/28/24 15:25 98 06/28/24 15:25 104 H 06/28/24 15:22 103 H 06/28/24 15:22 92/50 L 06/28/24 15:20 98 06/28/24 15:20 98 H 06/28/24 15:19 94 06/28/24 15:19 94 H 06/28/24 15:19 89/51 L 06/28/24 15:15 97 06/28/24 15:15 78 06/28/24 15:10 97 06/28/24 15:10 78 06/28/24 15:05 97 06/28/24 15:05 83 06/28/24 15:04 80 06/28/24 15:04 98/57 L 06/28/24 15:00 20 06/28/24 15:00 20 06/28/24 15:00 97 06/28/24 15:00 91 H 06/28/24 14:55 98 06/28/24 14:55 81 06/28/24 14:50 98 06/28/24 14:50 101 H 06/28/24 14:49 93 H 06/28/24 14:49 97/55 L 06/28/24 14:45 98 06/28/24 14:45 102 H 06/28/24 14:40 98 06/28/24 14:40 83 06/28/24 14:35 98 06/28/24 14:35 81 06/28/24 14:35 78 06/28/24 14:35 102/55 L 06/28/24 14:30 18 06/28/24 14:30 36.7 C 18 06/28/24 14:30 98 06/28/24 14:30 103 H 06/28/24 14:25 99 06/28/24 14:25 84 06/28/24 14:20 98 06/28/24 14:20 96 H 06/28/24 14:19 90 06/28/24 14:19 104/55 L 06/28/24 14:15 98 06/28/24 14:15 107 H 06/28/24 14:10 98 06/28/24 14:10 91 H 06/28/24 14:05 99 06/28/24 14:05 87 06/28/24 14:05 84 06/28/24 14:05 107/52 L 06/28/24 14:00 20 06/28/24 14:00 20 06/28/24 14:00 99 06/28/24 14:00 95 H 06/28/24 13:55 99 06/28/24 13:55 96 H 06/28/24 13:50 98 06/28/24 13:50 83 06/28/24 13:49 93 H 06/28/24 13:49 92/54 L 06/28/24 13:45 99 06/28/24 13:45 95 H 06/28/24 13:44 97 H 06/28/24 13:44 93/60 L 06/28/24 13:40 99 06/28/24 13:40 103 H 06/28/24 13:35 99 06/28/24 13:35 100 H 06/28/24 13:30 20 06/28/24 13:30 20 06/28/24 13:30 99 06/28/24 13:30 86 06/28/24 13:25 99 06/28/24 13:25 104 H 06/28/24 13:20 100 06/28/24 13:20 97 H 06/28/24 13:19 84 06/28/24 13:19 101/62 06/28/24 13:15 99 06/28/24 13:15 88 06/28/24 13:10 100 06/28/24 13:10 97 H 06/28/24 13:05 100 06/28/24 13:05 83 06/28/24 13:01 84 06/28/24 13:01 109/62 06/28/24 13:00 20 06/28/24 13:00 20 06/28/24 13:00 100 06/28/24 13:00 107 H 06/28/24 12:55 100 06/28/24 12:55 86 06/28/24 12:50 100 06/28/24 12:50 96 H 06/28/24 12:45 100 06/28/24 12:45 88 06/28/24 12:40 100 06/28/24 12:40 97 H 06/28/24 12:35 100 06/28/24 12:35 86 06/28/24 12:30 20 06/28/24 12:30 36.4 C L 20 06/28/24 12:30 100 06/28/24 12:30 82 06/28/24 12:25 100 06/28/24 12:25 81 06/28/24 12:20 100 06/28/24 12:20 91 H 06/28/24 12:15 100 06/28/24 12:15 75 06/28/24 12:15 77 06/28/24 12:15 110/62 06/28/24 12:11 82 06/28/24 12:11 108/64 06/28/24 12:10 100 06/28/24 12:10 85 06/28/24 12:09 78 06/28/24 12:09 106/61 06/28/24 12:06 81 06/28/24 12:06 107/56 L 06/28/24 12:05 100 06/28/24 12:05 83 06/28/24 12:00 20 06/28/24 12:00 20 06/28/24 12:00 100 06/28/24 12:00 73 06/28/24 12:00 114/64 06/28/24 11:55 100 06/28/24 11:55 78 06/28/24 11:54 77 06/28/24 11:54 105/58 L 06/28/24 11:50 100 06/28/24 11:50 83 06/28/24 11:50 81 06/28/24 11:50 103/57 L 06/28/24 11:45 100 06/28/24 11:45 82 06/28/24 11:44 82 06/28/24 11:44 100/59 L 06/28/24 11:40 100 06/28/24 11:40 78 06/28/24 11:39 77 06/28/24 11:39 108/58 L 06/28/24 11:35 100 06/28/24 11:35 74 06/28/24 11:34 76 06/28/24 11:34 104/57 L 06/28/24 11:30 18 06/28/24 11:30 18 06/28/24 11:30 100 06/28/24 11:30 84 06/28/24 11:29 75 06/28/24 11:29 103/58 L 06/28/24 11:25 100 06/28/24 11:25 79 06/28/24 11:25 76 06/28/24 11:25 102/56 L 06/28/24 11:20 100 06/28/24 11:20 73 06/28/24 11:19 77 06/28/24 11:19 89/55 L 06/28/24 11:15 100 06/28/24 11:15 68 06/28/24 11:14 74 06/28/24 11:14 97/54 L 06/28/24 11:10 100 06/28/24 11:10 74 06/28/24 11:09 77 06/28/24 11:09 107/57 L 06/28/24 11:06 94 H 06/28/24 11:06 116/62 06/28/24 11:05 100 06/28/24 11:05 78 06/28/24 11:00 20 06/28/24 11:00 20 06/28/24 11:00 100 06/28/24 11:00 70 06/28/24 11:00 107/59 L 06/28/24 10:56 75 06/28/24 10:56 108/62 06/28/24 10:55 100 06/28/24 10:55 74 06/28/24 10:50 99 06/28/24 10:50 90 06/28/24 10:50 115/67 06/28/24 10:45 100 06/28/24 10:45 75 06/28/24 10:44 73 06/28/24 10:44 111/57 L 06/28/24 10:40 100 06/28/24 10:40 75 06/28/24 10:40 113/58 L 06/28/24 10:35 100 06/28/24 10:35 80 06/28/24 10:34 92 H 06/28/24 10:34 112/60 06/28/24 10:30 36.7 C 06/28/24 10:30 20 06/28/24 10:30 20 06/28/24 10:30 100 06/28/24 10:30 64 06/28/24 10:29 65 06/28/24 10:29 106/59 L 06/28/24 10:28 68 06/28/24 10:28 113/58 L 06/28/24 10:26 66 06/28/24 10:26 112/59 L 06/28/24 10:25 100 06/28/24 10:25 66 06/28/24 10:24 62 06/28/24 10:24 116/57 L 06/28/24 10:22 66 06/28/24 10:22 118/67 06/28/24 10:20 18 06/28/24 10:20 18 06/28/24 10:20 100 06/28/24 10:20 71 06/28/24 10:20 74 06/28/24 10:20 99/58 L 06/28/24 10:19 74 06/28/24 10:19 101/55 L 06/28/24 10:18 85 06/28/24 10:18 108/59 L 06/28/24 10:16 94 06/28/24 10:16 76 06/28/24 10:16 113/66 06/28/24 10:15 94 06/28/24 10:15 77 06/28/24 10:14 76 06/28/24 10:14 112/61 06/28/24 10:12 85 06/28/24 10:12 111/61 06/28/24 10:10 18 06/28/24 10:10 18 06/28/24 10:10 89 L 06/28/24 10:10 77 06/28/24 10:10 77 06/28/24 10:10 108/57 L 06/28/24 10:09 92 06/28/24 10:09 75 06/28/24 10:08 78 06/28/24 10:08 111/60 06/28/24 10:06 86 06/28/24 10:06 110/59 L 06/28/24 10:05 97 06/28/24 10:05 81 06/28/24 10:04 76 06/28/24 10:04 104/56 L 06/28/24 10:02 76 06/28/24 10:02 107/58 L 06/28/24 10:00 20 06/28/24 10:00 20 06/28/24 10:00 97 06/28/24 10:00 78 06/28/24 10:00 96/51 L 06/28/24 09:59 73 06/28/24 09:59 100/60 06/28/24 09:55 97 06/28/24 09:55 73 06/28/24 09:53 73 06/28/24 09:53 93/54 L 06/28/24 09:50 18 06/28/24 09:50 18 06/28/24 09:50 97 06/28/24 09:50 80 06/28/24 09:49 111 H 06/28/24 09:49 134/87 06/28/24 09:46 90 06/28/24 09:46 96/60 L 06/28/24 09:45 98 06/28/24 09:45 77 06/28/24 09:44 77 06/28/24 09:44 80/49 L 06/28/24 09:43 20 06/28/24 09:43 20 06/28/24 09:42 101 H 06/28/24 09:42 88/54 L 06/28/24 09:40 99 06/28/24 09:40 107 H 06/28/24 09:35 99 06/28/24 09:35 103 H PG Care Time/CCT Total # of Minutes Spent Total Time Spent with Patient: Total time spent is greater than 50% in coordination of care (as documented) at patient's floor/unit and/or counseling patient: Coding Level of Care Code None
[2024-06-28] MEDS ORDERED: LIDOCAINE 2% 20 MG/ML 5 ML SYR IV ONE (21:42)
[2024-06-28] MEDS ORDERED: NO NARCOTICS OR SEDATIVES SCH (21:45)
[2024-06-28] MEDS ORDERED: DC INTRASPINAL MORPHINE SCH (21:45)
[2024-06-28] MEDS: ACETAMINOPHEN 500 MG TAB PO ONE (21:51)
[2024-06-28] MEDS: CITRIC ACID/SODIUM CITRATE 15 ML UDC PO ONE (21:53)
[2024-06-28] MEDS: ceFAZolin 2000MG 2,000 MG/15 ML SYR IV ONE (22:10)
[2024-06-28] MEDS ORDERED: ONDANSETRON INJ 2 MG/ML 2 ML VIAL ONE (22:33)
[2024-06-28] MEDS ORDERED: DEXAMETHASONE SOD INJ 4 MG/ML VIAL ONE (22:33)
[2024-06-28] MEDS ORDERED: CALCIUM CARBONATE 500 MG CHEWABLE TAB PO PRN (23:04)
[2024-06-28] MEDS ORDERED: SENNA 8.6 MG TAB PO PRN (23:04)
[2024-06-28] MEDS ORDERED: BENZOCAINE 20% SPRY 85 APPLN/85 GM CAN EXT PRN (23:04)
[2024-06-28] MEDS ORDERED: MAGNESIUM HYDROXIDE SUSP 30 ML UDC PO PRN (23:04)
[2024-06-28] MEDS ORDERED: HYDROCORTISONE ACETATE 25 MG SUPP PR PRN (23:04)
--- NOTE | 2024-06-28 23:11 | Operative Report ---
Post Operative Report Pre & Post Diagnosis Operation Date: 06/28/24 21:30 Pre-Op Diagnosis: Primary c/s for intolerance of labor and borderline meeting criteria for failure to progress. Post-Op Diagnosis: Primary c/s for intolerance of labor and borderline meeting criteria for failure to progress. I identified the patient and participated in the time-out.: Yes Procedure Operation Date: 06/28/24 21:30 Actual Procedures p Section in LD of a (Bilateral) - Sergio Knowles MD Surgeon Sergio Knowles MD Visual Merchandising Coordinator Nursing Quantitative Blood Loss (QBL) See chart Findings Consistent with Post-Op Diagnosis Specimens None Description of Procedure Patient was taken the operating room after consent was ensured. Upon presentation she was properly identified. Anesthesia obtained and patient prepped and draped in normal sterile fashion. Preprocedural timeout was performed. A Pfannenstiel incision was made with a knife. This was carried down to underlying fascia with the Bovie and blunt dissection. The fascia was nicked at the midline with a knife and extended laterally with pickups and Toth scissors. Abdominal cavity was entered bluntly and placed on stretch to provide adequate room for delivery. A low transverse uterine incision was made with a knife. Head of the was delivered through the hysterotomy followed by body and shoulders. noted to be vigorous at time of delivery and a 30 second delayed cord clamping was initiated after which the cord was double clamped and cut. Baby taken to the waiting nursery staff. Attention was turned to delivery of the placenta which delivered intact with three-vessel cord gentle cord traction. Uterus was exteriorized and several passes were made to remove any remaining membranes with a dry lap. Hysterotomy was reapproximated with 0 Vicryl continuous running lock stitch with a second imbricating layer performed. Posterior cul-de-sac cleaned of clots and debris's. Uterus returned maternal abdomen and right left paracolic gutters cleaned of clots and debris's. Hysterotomy remained hemostatic. Subcutaneous fascia and muscle layers inspected noted be hemostatic. Fascia was reapproximated 0 Vicryl continuous running stitch. Subcutaneous layer reapproximated 2 layers using 2-0 plain. Skin reapproximated with 3-0 Vicryl an d continuous subcuticular stitch. Dermabond placed on top. Both mother and in stable condition at the completion of the case. Needle sponge and instrument counts correct at the completion of the case. No complications noted and blood loss per QBL I attest to the content of the Intraoperative Record and any orders documented therein. Any exceptions are noted below. OB Procedure Charges [id number]
--- NOTE | 2024-06-28 23:19 | Anesthesia Procedure Note ---
Date of Service June 28, 2024 Anesthesia Post Epidural Note Vital Signs Vital Signs: Temp Pulse Resp BP Pulse Ox 37.2 C 87 18 134/73 100 06/28/24 21:00 06/28/24 23:13 06/28/24 21:00 06/28/24 23:13 06/28/24 23:13 Pain Intensity Bilateral Abdomen: Pain Intensity: 0 Notes Mental Status: alert / awake / arousable and participated in evaluation Nausea / Vomiting: adequately controlled Pain: adequately controlled Airway Patency, RR, SpO2: stable & adequate BP & HR: stable & adequate Hydration State: stable & adequate Neuraxial Anesthesia: was administered and sensory block resolved Anesthetic Complications: no major complications apparent and Pt Satisfied with anesthetic care Epidural: Removed without complications and With tip intact
[2024-06-28] MEDS: MoRPHine SULFATE PF 1 MG/ML 10 ML AMP/VIAL INT SPINAL ONE (23:29)
[2024-06-28] MEDS: AZITHROMYCIN 500 MG in DEXTROSE 5% 250 ML IV ONE (23:30)
[2024-06-28] MEDS: OXYTOCIN 20 UNITS/1002ML LR IV ONE (23:53)
[2024-06-28] MEDS: OXYTOCIN 20 UNITS/LR 1,002 ML IV SCH (23:53)
[2024-06-28] MEDS: KETOROLAC 30 MG/ML VIAL ONE (23:54)
[2024-06-28] MEDS: KETOROLAC 30 MG/ML VIAL IV SCH (23:55)
--- NOTE | 2024-06-29 00:05 | Anesthesiology Progress Note ---
Date of Service June 29, 2024 Anesthesia Post Procedure Vital Signs Vital Signs: Temp Pulse Resp BP Pulse Ox 06/29/24 00:03 74 99 06/28/24 23:58 99 06/28/24 23:58 72 06/28/24 23:56 81 06/28/24 23:56 139/65 06/28/24 23:55 36.5 C 18 06/28/24 23:53 99 06/28/24 23:53 79 06/28/24 23:48 96 06/28/24 23:48 90 06/28/24 23:46 92 H 06/28/24 23:46 144/63 H 06/28/24 23:45 36.5 C 18 06/28/24 23:43 100 06/28/24 23:43 79 06/28/24 23:38 100 06/28/24 23:38 81 06/28/24 23:36 79 06/28/24 23:36 156/79 H 06/28/24 23:35 36.5 C 18 06/28/24 23:33 99 06/28/24 23:33 72 06/28/24 23:28 98 06/28/24 23:28 79 06/28/24 23:28 78 06/28/24 23:28 124/57 L 06/28/24 23:25 36.5 C 18 06/28/24 23:23 100 06/28/24 23:23 81 06/28/24 23:18 100 06/28/24 23:18 79 06/28/24 23:15 36.5 C 18 06/28/24 23:13 100 06/28/24 23:13 87 06/28/24 23:13 134/73 06/28/24 22:10 99 06/28/24 22:10 83 06/28/24 22:05 99 06/28/24 22:05 79 06/28/24 22:05 134/71 06/28/24 22:00 99 06/28/24 22:00 77 06/28/24 21:55 99 06/28/24 21:55 84 06/28/24 21:50 99 06/28/24 21:50 79 06/28/24 21:50 130/70 06/28/24 21:45 100 06/28/24 21:45 80 06/28/24 21:40 100 06/28/24 21:40 77 06/28/24 21:36 82 06/28/24 21:36 120/68 06/28/24 21:35 99 06/28/24 21:35 80 06/28/24 21:30 98 06/28/24 21:30 99 H 06/28/24 21:29 94 06/28/24 21:29 93 H 06/28/24 21:25 99 06/28/24 21:25 82 06/28/24 21:20 99 06/28/24 21:20 83 06/28/24 21:19 83 06/28/24 21:19 113/56 L 06/28/24 21:15 98 06/28/24 21:15 75 06/28/24 21:10 98 06/28/24 21:10 74 06/28/24 21:05 98 06/28/24 21:05 73 06/28/24 21:05 125/63 06/28/24 21:00 18 06/28/24 21:00 37.2 C 18 06/28/24 21:00 98 06/28/24 21:00 78 06/28/24 20:55 99 06/28/24 20:55 77 06/28/24 20:50 98 06/28/24 20:50 80 06/28/24 20:49 81 06/28/24 20:49 121/57 L 06/28/24 20:49 92 06/28/24 20:49 86 06/28/24 20:45 98 06/28/24 20:45 88 06/28/24 20:40 99 06/28/24 20:40 79 06/28/24 20:35 98 06/28/24 20:35 71 06/28/24 20:35 116/57 L 06/28/24 20:30 99 06/28/24 20:30 80 06/28/24 20:25 98 06/28/24 20:25 83 06/28/24 20:20 99 06/28/24 20:20 73 06/28/24 20:20 72 06/28/24 20:20 114/56 L 06/28/24 20:15 100 06/28/24 20:15 78 06/28/24 20:10 99 06/28/24 20:10 74 06/28/24 20:05 99 06/28/24 20:05 81 06/28/24 20:05 80 06/28/24 20:05 105/51 L 06/28/24 20:00 99 06/28/24 20:00 83 06/28/24 19:55 98 06/28/24 19:55 80 06/28/24 19:50 98 06/28/24 19:50 79 06/28/24 19:49 78 06/28/24 19:49 108/58 L 06/28/24 19:47 93 06/28/24 19:47 81 06/28/24 19:45 97 06/28/24 19:45 79 06/28/24 19:40 98 06/28/24 19:40 69 06/28/24 19:35 97 06/28/24 19:35 91 H 06/28/24 19:30 97 06/28/24 19:30 77 06/28/24 19:28 90 06/28/24 19:28 111/70 06/28/24 19:25 98 06/28/24 19:25 95 H 06/28/24 19:24 76 06/28/24 19:24 126/59 L 06/28/24 19:20 99 06/28/24 19:20 84 06/28/24 19:18 81 06/28/24 19:18 147/69 H 06/28/24 19:15 96 06/28/24 19:15 71 06/28/24 19:12 102 H 06/28/24 19:12 105/50 L 06/28/24 19:10 36.8 C 18 06/28/24 19:10 18 06/28/24 19:10 36.8 C 18 06/28/24 19:10 96 06/28/24 19:10 84 06/28/24 19:08 76 06/28/24 19:08 106/54 L 06/28/24 19:05 97 06/28/24 19:05 82 06/28/24 19:02 71 06/28/24 19:02 104/57 L 06/28/24 19:00 20 06/28/24 19:00 20 06/28/24 19:00 97 06/28/24 19:00 72 06/28/24 18:59 69 06/28/24 18:59 102/55 L 06/28/24 18:55 97 06/28/24 18:55 76 06/28/24 18:53 71 06/28/24 18:53 101/55 L 06/28/24 18:50 96 06/28/24 18:50 88 06/28/24 18:48 78 06/28/24 18:48 104/59 L 06/28/24 18:45 97 06/28/24 18:45 81 06/28/24 18:44 69 06/28/24 18:44 100/52 L 06/28/24 18:40 95 06/28/24 18:40 74 06/28/24 18:38 75 06/28/24 18:38 105/55 L 06/28/24 18:35 96 06/28/24 18:35 74 06/28/24 18:32 74 06/28/24 18:32 111/58 L 06/28/24 18:30 20 06/28/24 18:30 20 06/28/24 18:30 97 06/28/24 18:30 86 06/28/24 18:28 84 06/28/24 18:28 107/55 L 06/28/24 18:25 97 06/28/24 18:25 77 06/28/24 18:25 107/54 L 06/28/24 18:23 88 06/28/24 18:23 78/51 L 06/28/24 18:20 96 06/28/24 18:20 78 06/28/24 18:19 85 06/28/24 18:19 84/51 L 06/28/24 18:15 96 06/28/24 18:15 70 06/28/24 18:10 96 06/28/24 18:10 92 H 06/28/24 18:05 96 06/28/24 18:05 92 H 06/28/24 18:04 75 06/28/24 18:04 94/55 L 06/28/24 18:00 36.7 C 06/28/24 18:00 20 06/28/24 18:00 20 06/28/24 18:00 95 06/28/24 18:00 82 06/28/24 18:00 87 06/28/24 18:00 87/53 L 06/28/24 17:55 96 06/28/24 17:55 79 06/28/24 17:50 96 06/28/24 17:50 80 06/28/24 17:49 76 06/28/24 17:49 87/53 L 06/28/24 17:45 96 06/28/24 17:45 82 06/28/24 17:40 95 06/28/24 17:40 78 06/28/24 17:35 96 06/28/24 17:35 75 06/28/24 17:35 74 06/28/24 17:35 99/55 L 06/28/24 17:30 18 06/28/24 17:30 18 06/28/24 17:30 97 06/28/24 17:30 94 H 06/28/24 17:25 98 06/28/24 17:25 88 06/28/24 17:20 97 06/28/24 17:20 83 06/28/24 17:19 87 06/28/24 17:19 110/66 06/28/24 17:15 97 06/28/24 17:15 89 06/28/24 17:10 97 06/28/24 17:10 90 06/28/24 17:05 97 06/28/24 17:05 85 06/28/24 17:04 87 06/28/24 17:04 117/69 06/28/24 17:00 20 06/28/24 17:00 20 06/28/24 17:00 97 06/28/24 17:00 88 06/28/24 16:55 97 06/28/24 16:55 87 06/28/24 16:50 97 06/28/24 16:50 94 H 06/28/24 16:49 88 06/28/24 16:49 119/65 06/28/24 16:45 96 06/28/24 16:45 83 06/28/24 16:40 96 06/28/24 16:40 79 06/28/24 16:35 96 06/28/24 16:35 83 06/28/24 16:34 82 06/28/24 16:34 114/59 L 06/28/24 16:30 20 06/28/24 16:30 20 06/28/24 16:30 96 06/28/24 16:30 84 06/28/24 16:25 96 06/28/24 16:25 77 06/28/24 16:20 96 06/28/24 16:20 84 06/28/24 16:19 80 06/28/24 16:19 115/66 06/28/24 16:15 96 06/28/24 16:15 80 06/28/24 16:10 96 06/28/24 16:10 83 06/28/24 16:05 96 06/28/24 16:05 89 06/28/24 16:04 78 06/28/24 16:04 118/66 06/28/24 16:00 20 06/28/24 16:00 36.7 C 20 06/28/24 16:00 97 06/28/24 16:00 91 H 06/28/24 15:55 20 06/28/24 15:55 36.9 C 20 06/28/24 15:55 97 06/28/24 15:55 97 H 06/28/24 15:55 116/78 06/28/24 15:50 97 06/28/24 15:50 90 06/28/24 15:49 96 H 06/28/24 15:49 88/50 L 06/28/24 15:45 97 06/28/24 15:45 103 H 06/28/24 15:40 98 06/28/24 15:40 92 H 06/28/24 15:35 98 06/28/24 15:35 89 06/28/24 15:35 78 06/28/24 15:35 98/57 L 06/28/24 15:30 20 06/28/24 15:30 20 06/28/24 15:30 99 06/28/24 15:30 90 06/28/24 15:25 98 06/28/24 15:25 104 H 06/28/24 15:22 103 H 06/28/24 15:22 92/50 L 06/28/24 15:20 98 06/28/24 15:20 98 H 06/28/24 15:19 94 06/28/24 15:19 94 H 06/28/24 15:19 89/51 L 06/28/24 15:15 97 06/28/24 15:15 78 06/28/24 15:10 97 06/28/24 15:10 78 06/28/24 15:05 97 06/28/24 15:05 83 06/28/24 15:04 80 06/28/24 15:04 98/57 L 06/28/24 15:00 20 06/28/24 15:00 20 06/28/24 15:00 97 06/28/24 15:00 91 H 06/28/24 14:55 98 06/28/24 14:55 81 06/28/24 14:50 98 06/28/24 14:50 101 H 06/28/24 14:49 93 H 06/28/24 14:49 97/55 L 06/28/24 14:45 98 06/28/24 14:45 102 H 06/28/24 14:40 98 06/28/24 14:40 83 06/28/24 14:35 98 06/28/24 14:35 81 06/28/24 14:35 78 06/28/24 14:35 102/55 L 06/28/24 14:30 18 06/28/24 14:30 36.7 C 18 06/28/24 14:30 98 06/28/24 14:30 103 H 06/28/24 14:25 99 06/28/24 14:25 84 06/28/24 14:20 98 06/28/24 14:20 96 H 06/28/24 14:19 90 06/28/24 14:19 104/55 L 06/28/24 14:15 98 06/28/24 14:15 107 H 06/28/24 14:10 98 06/28/24 14:10 91 H 06/28/24 14:05 99 06/28/24 14:05 87 06/28/24 14:05 84 06/28/24 14:05 107/52 L 06/28/24 14:00 20 06/28/24 14:00 20 06/28/24 14:00 99 06/28/24 14:00 95 H 06/28/24 13:55 99 06/28/24 13:55 96 H 06/28/24 13:50 98 06/28/24 13:50 83 06/28/24 13:49 93 H 06/28/24 13:49 92/54 L 06/28/24 13:45 99 06/28/24 13:45 95 H 06/28/24 13:44 97 H 06/28/24 13:44 93/60 L 06/28/24 13:40 99 06/28/24 13:40 103 H 06/28/24 13:35 99 06/28/24 13:35 100 H 06/28/24 13:30 20 06/28/24 13:30 20 06/28/24 13:30 99 06/28/24 13:30 86 06/28/24 13:25 99 06/28/24 13:25 104 H 06/28/24 13:20 100 06/28/24 13:20 97 H 06/28/24 13:19 84 06/28/24 13:19 101/62 06/28/24 13:15 99 06/28/24 13:15 88 06/28/24 13:10 100 06/28/24 13:10 97 H 06/28/24 13:05 100 06/28/24 13:05 83 06/28/24 13:01 84 06/28/24 13:01 109/62 06/28/24 13:00 20 06/28/24 13:00 20 06/28/24 13:00 100 06/28/24 13:00 107 H 06/28/24 12:55 100 06/28/24 12:55 86 06/28/24 12:50 100 06/28/24 12:50 96 H 06/28/24 12:45 100 06/28/24 12:45 88 06/28/24 12:40 100 06/28/24 12:40 97 H 06/28/24 12:35 100 06/28/24 12:35 86 06/28/24 12:30 20 06/28/24 12:30 36.4 C L 20 06/28/24 12:30 100 06/28/24 12:30 82 06/28/24 12:25 100 06/28/24 12:25 81 06/28/24 12:20 100 06/28/24 12:20 91 H 06/28/24 12:15 100 06/28/24 12:15 75 06/28/24 12:15 77 06/28/24 12:15 110/62 06/28/24 12:11 82 06/28/24 12:11 108/64 06/28/24 12:10 100 06/28/24 12:10 85 06/28/24 12:09 78 06/28/24 12:09 106/61 06/28/24 12:06 81 06/28/24 12:06 107/56 L 06/28/24 12:05 100 06/28/24 12:05 83 06/28/24 12:00 20 06/28/24 12:00 20 06/28/24 12:00 100 06/28/24 12:00 73 06/28/24 12:00 114/64 06/28/24 11:55 100 06/28/24 11:55 78 06/28/24 11:54 77 06/28/24 11:54 105/58 L 06/28/24 11:50 100 06/28/24 11:50 83 06/28/24 11:50 81 06/28/24 11:50 103/57 L 06/28/24 11:45 100 06/28/24 11:45 82 06/28/24 11:44 82 06/28/24 11:44 100/59 L 06/28/24 11:40 100 06/28/24 11:40 78 06/28/24 11:39 77 06/28/24 11:39 108/58 L 06/28/24 11:35 100 06/28/24 11:35 74 06/28/24 11:34 76 06/28/24 11:34 104/57 L 06/28/24 11:30 18 06/28/24 11:30 18 06/28/24 11:30 100 06/28/24 11:30 84 06/28/24 11:29 75 06/28/24 11:29 103/58 L 06/28/24 11:25 100 06/28/24 11:25 79 06/28/24 11:25 76 06/28/24 11:25 102/56 L 06/28/24 11:20 100 06/28/24 11:20 73 06/28/24 11:19 77 06/28/24 11:19 89/55 L 06/28/24 11:15 100 06/28/24 11:15 68 06/28/24 11:14 74 06/28/24 11:14 97/54 L 06/28/24 11:10 100 06/28/24 11:10 74 06/28/24 11:09 77 06/28/24 11:09 107/57 L 06/28/24 11:06 94 H 06/28/24 11:06 116/62 06/28/24 11:05 100 06/28/24 11:05 78 06/28/24 11:00 20 06/28/24 11:00 20 06/28/24 11:00 100 06/28/24 11:00 70 06/28/24 11:00 107/59 L 06/28/24 10:56 75 06/28/24 10:56 108/62 06/28/24 10:55 100 06/28/24 10:55 74 06/28/24 10:50 99 06/28/24 10:50 90 06/28/24 10:50 115/67 06/28/24 10:45 100 06/28/24 10:45 75 06/28/24 10:44 73 06/28/24 10:44 111/57 L 06/28/24 10:40 100 06/28/24 10:40 75 06/28/24 10:40 113/58 L 06/28/24 10:35 100 06/28/24 10:35 80 06/28/24 10:34 92 H 06/28/24 10:34 112/60 06/28/24 10:30 36.7 C 06/28/24 10:30 20 06/28/24 10:30 20 06/28/24 10:30 100 06/28/24 10:30 64 06/28/24 10:29 65 06/28/24 10:29 106/59 L 06/28/24 10:28 68 06/28/24 10:28 113/58 L 06/28/24 10:26 66 06/28/24 10:26 112/59 L 06/28/24 10:25 100 06/28/24 10:25 66 06/28/24 10:24 62 06/28/24 10:24 116/57 L 06/28/24 10:22 66 06/28/24 10:22 118/67 06/28/24 10:20 18 06/28/24 10:20 18 06/28/24 10:20 100 06/28/24 10:20 71 06/28/24 10:20 74 06/28/24 10:20 99/58 L 06/28/24 10:19 74 06/28/24 10:19 101/55 L 06/28/24 10:18 85 06/28/24 10:18 108/59 L 06/28/24 10:16 94 06/28/24 10:16 76 06/28/24 10:16 113/66 06/28/24 10:15 94 06/28/24 10:15 77 06/28/24 10:14 76 06/28/24 10:14 112/61 06/28/24 10:12 85 06/28/24 10:12 111/61 06/28/24 10:10 18 06/28/24 10:10 18 06/28/24 10:10 89 L 06/28/24 10:10 77 06/28/24 10:10 77 06/28/24 10:10 108/57 L 06/28/24 10:09 92 06/28/24 10:09 75 06/28/24 10:08 78 06/28/24 10:08 111/60 06/28/24 10:06 86 06/28/24 10:06 110/59 L 06/28/24 10:05 97 06/28/24 10:05 81 06/28/24 10:04 76 06/28/24 10:04 104/56 L 06/28/24 10:02 76 06/28/24 10:02 107/58 L 06/28/24 10:00 20 06/28/24 10:00 20 06/28/24 10:00 97 06/28/24 10:00 78 06/28/24 10:00 96/51 L 06/28/24 09:59 73 06/28/24 09:59 100/60 06/28/24 09:55 97 06/28/24 09:55 73 06/28/24 09:53 73 06/28/24 09:53 93/54 L 06/28/24 09:50 18 06/28/24 09:50 18 06/28/24 09:50 97 06/28/24 09:50 80 06/28/24 09:49 111 H 06/28/24 09:49 134/87 06/28/24 09:46 90 06/28/24 09:46 96/60 L 06/28/24 09:45 98 06/28/24 09:45 77 06/28/24 09:44 77 06/28/24 09:44 80/49 L 06/28/24 09:43 20 06/28/24 09:43 20 06/28/24 09:42 101 H 06/28/24 09:42 88/54 L 06/28/24 09:40 99 06/28/24 09:40 107 H 06/28/24 09:35 99 06/28/24 09:35 103 H 06/28/24 09:30 99 06/28/24 09:30 116 H 06/28/24 09:25 100 06/28/24 09:25 102 H 06/28/24 07:32 37.0 C 94 H 20 119/75 Pain Intensity Bilateral Abdomen: Pain Intensity: 3 Transfer of Care Handoff Completed per policy Notes Mental Status: alert / awake / arousable and participated in evaluation Patient Amnestic to Procedure: Yes Nausea / Vomiting: adequately controlled Pain: adequately controlled Airway Patency, RR, SpO2: stable & adequate BP & HR: stable & adequate Hydration State: stable & adequate Anesthetic Complications: no major complications apparent and Pt Satisfied with anesthetic care
[2024-06-29] MEDS: DIPHTHER/TETAN/PERTUS Vaccine (Tdap, Adol/Adult) 0.5mL IM ONE (00:35)
[2024-06-29] MEDS: LACTATED RINGER'S 1,000 ML IV SCH (00:35)
[2024-06-29] MEDS: ACETAMINOPHEN 325 MG TAB PO SCH (06:13)
[2024-06-29 06:36] LABS: Hematocrit (blood only) 35.4 % (37.0-47.0); Hemoglobin 11.8 g/dl (12.0-16.0)
--- NOTE | 2024-06-29 08:22 | Obstetrical Progress Note ---
Date of Service June 29, 2024 Assessment & Plan (1) Encounter for care and examination after delivery: Day 1 status post primary . Patient doing well. Routine care Subjective Ambulation: ambulating normally Voiding: no voiding problems Passing Gas:: Yes Diet Tolerance:: regular diet Lochia:: Moderate Feeding Type:: breast feeding Physical Exam Constitutional WD/WN, vitals as above Respiratory normal respiratory effort; no respiratory distress and no labored breathing Cardiovascular Extremities: no calf tenderness Gastrointestinal (Abdomen) Inspection/Auscultation: abdomen normal to inspection; abdomen not distended Percussion/Palpation: abdomen soft; abdomen nontender, no guarding and abdomen not rigid Genitourinary OB Exam Abdomen: + fundal height Fundus: + firm and + relation to umbilicus (Below); not tender or not boggy Results & Data Vital Signs (Past 12 Hours) Vital Signs Temp Pulse Pulse Resp BP BP Pulse Ox 06/29/24 07:00 16 98 06/29/24 03:45 36.7 C 73 18 120/71 99 06/29/24 01:16 71 114/64 06/29/24 01:15 36.8 C 18 06/29/24 01:13 68 99 06/29/24 01:08 84 100 06/29/24 01:06 82 145/74 H 06/29/24 01:03 79 100 06/29/24 00:58 82 98 06/29/24 00:53 73 100 06/29/24 00:48 81 99 06/29/24 00:46 81 105/50 L 06/29/24 00:45 36.9 C 18 06/29/24 00:43 72 100 06/29/24 00:38 74 100 06/29/24 00:36 76 124/67 06/29/24 00:33 76 100 06/29/24 00:28 75 100 06/29/24 00:26 76 119/62 06/29/24 00:23 73 99 06/29/24 00:18 85 100 06/29/24 00:17 79 120/58 L 06/29/24 00:15 36.9 C 18 06/29/24 00:15 36.9 C 18 06/29/24 00:13 82 97 06/29/24 00:08 82 99 06/29/24 00:06 75 130/62 06/29/24 00:05 36.5 C 18 06/29/24 00:03 74 99 06/28/24 23:58 99 06/28/24 23:58 72 06/28/24 23:56 81 06/28/24 23:56 139/65 06/28/24 23:55 36.5 C 18 06/28/24 23:53 99 06/28/24 23:53 79 06/28/24 23:48 96 06/28/24 23:48 90 06/28/24 23:46 92 H 06/28/24 23:46 144/63 H 06/28/24 23:45 36.5 C 18 06/28/24 23:43 100 06/28/24 23:43 79 06/28/24 23:38 100 06/28/24 23:38 81 06/28/24 23:36 79 06/28/24 23:36 156/79 H 06/28/24 23:35 36.5 C 18 06/28/24 23:33 99 06/28/24 23:33 72 06/28/24 23:28 98 06/28/24 23:28 79 06/28/24 23:28 78 06/28/24 23:28 124/57 L 06/28/24 23:25 36.5 C 18 06/28/24 23:23 100 06/28/24 23:23 81 06/28/24 23:18 100 06/28/24 23:18 79 06/28/24 23:15 36.5 C 18 06/28/24 23:13 100 06/28/24 23:13 87 06/28/24 23:13 134/73 06/28/24 22:10 99 06/28/24 22:10 83 06/28/24 22:05 99 06/28/24 22:05 79 06/28/24 22:05 134/71 06/28/24 22:00 99 06/28/24 22:00 77 06/28/24 21:55 99 06/28/24 21:55 84 06/28/24 21:50 99 06/28/24 21:50 79 06/28/24 21:50 130/70 06/28/24 21:45 100 06/28/24 21:45 80 06/28/24 21:40 100 06/28/24 21:40 77 06/28/24 21:36 82 06/28/24 21:36 120/68 06/28/24 21:35 99 06/28/24 21:35 80 06/28/24 21:30 98 06/28/24 21:30 99 H 06/28/24 21:29 94 06/28/24 21:29 93 H 06/28/24 21:25 99 06/28/24 21:25 82 06/28/24 21:20 99 06/28/24 21:20 83 06/28/24 21:19 83 06/28/24 21:19 113/56 L 06/28/24 21:15 98 06/28/24 21:15 75 06/28/24 21:10 98 06/28/24 21:10 74 06/28/24 21:05 98 06/28/24 21:05 73 06/28/24 21:05 125/63 06/28/24 21:00 18 06/28/24 21:00 37.2 C 18 06/28/24 21:00 98 06/28/24 21:00 78 06/28/24 20:55 99 06/28/24 20:55 77 06/28/24 20:50 98 06/28/24 20:50 80 06/28/24 20:49 81 06/28/24 20:49 121/57 L 06/28/24 20:49 92 06/28/24 20:49 86 06/28/24 20:45 98 06/28/24 20:45 88 06/28/24 20:40 99 06/28/24 20:40 79 06/28/24 20:35 98 06/28/24 20:35 71 06/28/24 20:35 116/57 L 06/28/24 20:30 99 06/28/24 20:30 80 06/28/24 20:25 98 06/28/24 20:25 83 O2 Del Method 06/29/24 07:00 06/29/24 03:45 Room Air 06/29/24 01:16 06/29/24 01:15 06/29/24 01:13 06/29/24 01:08 06/29/24 01:06 06/29/24 01:03 06/29/24 00:58 06/29/24 00:53 06/29/24 00:48 06/29/24 00:46 06/29/24 00:45 06/29/24 00:43 06/29/24 00:38 06/29/24 00:36 06/29/24 00:33 06/29/24 00:28 06/29/24 00:26 06/29/24 00:23 06/29/24 00:18 06/29/24 00:17 06/29/24 00:15 06/29/24 00:15 06/29/24 00:13 06/29/24 00:08 06/29/24 00:06 06/29/24 00:05 06/29/24 00:03 06/28/24 23:58 06/28/24 23:58 06/28/24 23:56 06/28/24 23:56 06/28/24 23:55 06/28/24 23:53 06/28/24 23:53 06/28/24 23:48 06/28/24 23:48 06/28/24 23:46 06/28/24 23:46 06/28/24 23:45 06/28/24 23:43 06/28/24 23:43 06/28/24 23:38 06/28/24 23:38 06/28/24 23:36 06/28/24 23:36 06/28/24 23:35 06/28/24 23:33 06/28/24 23:33 06/28/24 23:28 06/28/24 23:28 06/28/24 23:28 06/28/24 23:28 06/28/24 23:25 06/28/24 23:23 06/28/24 23:23 06/28/24 23:18 06/28/24 23:18 06/28/24 23:15 06/28/24 23:13 06/28/24 23:13 06/28/24 23:13 06/28/24 22:10 06/28/24 22:10 06/28/24 22:05 06/28/24 22:05 06/28/24 22:05 06/28/24 22:00 06/28/24 22:00 06/28/24 21:55 06/28/24 21:55 06/28/24 21:50 06/28/24 21:50 06/28/24 21:50 06/28/24 21:45 06/28/24 21:45 06/28/24 21:40 06/28/24 21:40 06/28/24 21:36 06/28/24 21:36 06/28/24 21:35 06/28/24 21:35 06/28/24 21:30 06/28/24 21:30 06/28/24 21:29 06/28/24 21:29 06/28/24 21:25 06/28/24 21:25 06/28/24 21:20 06/28/24 21:20 06/28/24 21:19 06/28/24 21:19 06/28/24 21:15 06/28/24 21:15 06/28/24 21:10 06/28/24 21:10 06/28/24 21:05 06/28/24 21:05 06/28/24 21:05 06/28/24 21:00 06/28/24 21:00 06/28/24 21:00 06/28/24 21:00 06/28/24 20:55 06/28/24 20:55 06/28/24 20:50 06/28/24 20:50 06/28/24 20:49 06/28/24 20:49 06/28/24 20:49 06/28/24 20:49 06/28/24 20:45 06/28/24 20:45 06/28/24 20:40 06/28/24 20:40 06/28/24 20:35 06/28/24 20:35 06/28/24 20:35 06/28/24 20:30 06/28/24 20:30 06/28/24 20:25 06/28/24 20:25
[2024-06-29] MEDS: SIMETHICONE 80 MG CHEW PO SCH (08:54)
[2024-06-29] MEDS: PRENATAL VITAMIN 1 TAB PO SCH (08:54)
[2024-06-29] MEDS: FERROUS SULFATE 325 MG TAB PO SCH (08:54)
[2024-06-29] MEDS: DOCUSATE SODIUM 100 MG CAP PO SCH (08:54)
[2024-06-29] MEDS ORDERED: diphenhydrAMINE 50 MG/ML VIAL IV PRN (15:32)
[2024-06-29] MEDS ORDERED: HYDROmorphone INJ 0.5 MG/0.5 ML SYR IV PRN (15:32)
[2024-06-29] MEDS ORDERED: diphenhydrAMINE Capsule 25 MG CAP PO PRN (15:32)
[2024-06-29] MEDS ORDERED: PROMETHAZINE 12.5 MG/50.5 ML BAG IV PRN (15:32)
[2024-06-29] MEDS ORDERED: ONDANSETRON INJ 2 MG/ML 2 ML VIAL IV PRN (15:32)
[2024-06-29] MEDS: oxyCODONE HCL IR 5 MG TAB (IMMEDIATE RELEASE) PO PRN (20:27)
[2024-06-29] MEDS: bisacodyL 5 MG TABEC PO SCH (20:27)
[2024-06-29] MEDS ORDERED: KETOROLAC 30 MG/ML VIAL IV PRN (23:04)
[2024-06-29] MEDS: IBUPROFEN 600 MG TAB PO SCH (23:45)
--- NOTE | 2024-06-30 08:31 | Obstetrical Progress Note ---
Date of Service June 30, 2024 Assessment & Plan (1) Encounter for care and examination after delivery: 33 yo POD2 from [facility] -Meeting all pp milestones except passing flatus, feels bloated but gas is in there. Encouraged ambulation, chewing gum; already taking colace and simethicone -B+/rubella immune/, having some latch issues so wants to work w/ -f/u 6 weeks for appt, continue care Subjective Ambulation: ambulating normally Voiding: no voiding problems Passing Gas:: No Diet Tolerance:: regular diet Lochia:: Small Feeding Type:: breast feeding Pain well managed with medication Review of Systems Denies fevers, chills, n/v, DON, CP, SOB Physical Exam Constitutional WD/WN, vitals as above no acute distress Respiratory normal respiratory effort, lungs clear to auscultation Cardiovascular RRR, no murmur, no edema Gastrointestinal (Abdomen) Percussion/Palpation: abdomen soft; abdomen nontender fundus firm at umbilicus and NT, incision c/d/i Musculoskeletal BLE symmetric, nonerythematous, nontender Results & Data Vital Signs (Past 12 Hours) Vital Signs Temp Pulse Resp BP Pulse Ox O2 Del Method 06/29/24 23:44 98.8 F 99 H 16 109/69 99 Room Air
[2024-06-30] MEDS ORDERED: bisacodyL 10 MG SUPP PR PRN (23:04)
[2024-07-01] VITALS: TEMP 97.9
[2024-07-01] MEDS: IBUPROFEN 600 MG TAB PO PRN (00:07)
--- NOTE | 2024-07-01 05:48 | Obstetrical Progress Note ---
Date of Service July 01, 2024 Assessment & Plan (1) Encounter for care and examination after delivery: Plan stable, dc home, instructions reviewed. f/u 6 wk pp. will send small amt narcotic to pharm, discussed risk/se, checked on papdmp. Day #:: 3 Subjective Ambulation: ambulating normally Voiding: no voiding problems Passing Gas:: Yes Diet Tolerance:: regular diet Lochia:: Small Feeding Type:: breast feeding no pain issues, muscles feel sore and back is sore. Constitutional: + as per Subjective / HPI Physical Exam Constitutional WD/WN, vitals as above Respiratory normal respiratory effort, lungs clear to auscultation Cardiovascular Rate/Rhythm: regular rate and regular rhythm Gastrointestinal (Abdomen) Inspection/Auscultation: abdomen normal to inspection and + abdominal surgical incision (c/d/i) Percussion/Palpation: abdomen soft fundus firm 2 cm below umbilicus Musculoskeletal nt calves no edema Neurologic grossly normal Psychiatric A+Ox3, euthymic affect Results & Data Vital Signs (Past 12 Hours) Vital Signs Temp Pulse Resp BP Pulse Ox O2 Del Method 07/01/24 00:00 97.9 F 79 17 106/69 06/30/24 20:05 98.1 F 96 H 18 113/74 100 Room Air
[2024-07-01] MEDS: ACETAMINOPHEN 325 MG TAB PO PRN (08:56)
[2024-07-01 09:45] VITALS: PULSE 78; RESP 16; O2SAT 99
[2024-07-01 10:57] VITALS: BP 94/61
== END 2024-07-01 16:15 | disposition home or self-care (01) | DRG 788 ==
LOC: OPB 07:20 → 4S1 07:29 → 4E2 06-29 03:49